=== PATIENT | female | born 1945 | race Caucasian/White ===

== ENCOUNTER → 2016-03-03 | Outpatient (CLI) | payer MEDICARE, OTHER ==
[~2016-03-03] VITALS: Ht 30.5 cm; Wt 0.5 kg
[~2016-03-03] MED LIST: ALPR0.254 PO; AMIO200T33; CYANOCOBALAMIN (B-12) 1000 MCG/1 ML VIAL IM ONE; CYANOCOBALAMIN (B-12) 1000 MCG/1 ML VIAL ONE; KETOROLAC TROMETH 60MG/2ML VIAL IM ONE; LEVO75TA6; LOSA100T27; METO-159; SIMV-8; WARF2TAB49
[2016-03-03 10:25] VITALS: BP 124/73
[2016-03-03 10:36] VITALS: BP 112/76
[2016-03-03 10:52] VITALS: BP 112/76
[2016-03-03 16:36] LABS: Basophils # (auto) 0.1 uL; Basophils % (auto) 0.9 % (0.0-2.0); Eosinophils # (auto) 0 uL; Eosinophils % (auto) 0.3 % (0.0-7.0); Hematocrit 39.7 % (36.0-46.0); Hemoglobin 12.9 g/dL (12.2-16.2); Lymphocytes % (auto) 14.4 % (10.0-50.0); Mean Corpuscular Hemoglobin 30.3 pg (28.0-32.0); Mean Corpuscular Hgb Conc. 32.4 g/dL (32.0-36.0); Mean Corpuscular Volume 93.6 fL (80.0-100.0); Mean Platelet Volume 8.5 fL (7.4-10.4); Monocytes # (auto) 0.2 uL; Monocytes % (auto) 1.6 % (0.0-12.0); Neutrophils # (auto) 11.4 uL; Neutrophils % (auto) 82.8 % (37.0-80.0); Platelet Count (auto) 186 10^3/uL (140-450); Red Cell Distribution Width 17.1 % (11.6-16.0); White Blood Cell 13.7 10^3/uL (4.4-10.8)
== END | disposition home or self-care (01) ==
LOC: CHF HDHVI 10:16
PROVIDERS: ATTEND Internal Medicine Cardiovascular Disease
DX: D64.9 Anemia, unspecified (principal)
CPT/HCPCS: 36415; 85025; 96372; G0463; J1885

== ENCOUNTER → 2016-03-10 | Outpatient (CLI) | payer MEDICARE, OTHER ==
[~2016-03-10] MED LIST changes: -KETOROLAC TROMETH 60MG/2ML VIAL IM ONE
[2016-03-10 10:45] VITALS: BP 154/71
[2016-03-10 11:36] LABS: INR 1.7 (0.7-1.3); Prothrombin Time 20.8 sec (9.0-12.0)
[2016-03-10 11:40] VITALS: BP 120/79
[2016-03-10 16:28] LABS: Basophils # (auto) 0 uL; Basophils % (auto) 0.2 % (0.0-2.0); Eosinophils # (auto) 0 uL; Eosinophils % (auto) 0.1 % (0.0-7.0); Hematocrit 37.3 % (36.0-46.0); Lymphocytes # (auto) 1.5 uL; Lymphocytes % (auto) 20.3 % (10.0-50.0); Mean Corpuscular Hemoglobin 30.3 pg (28.0-32.0); Mean Corpuscular Hgb Conc. 32.1 g/dL (32.0-36.0); Mean Corpuscular Volume 94.4 fL (80.0-100.0); Mean Platelet Volume 8.6 fL (7.4-10.4); Monocytes # (auto) 0.2 uL; Monocytes % (auto) 2.8 % (0.0-12.0); Neutrophils # (auto) 5.8 uL; Neutrophils % (auto) 76.6 % (37.0-80.0); Platelet Count (auto) 144 10^3/uL (140-450); Red Cell Distribution Width 16.8 % (11.6-16.0); White Blood Cell 7.6 10^3/uL (4.4-10.8)
== END | disposition home or self-care (01) ==
LOC: CHF HDHVI 10:48
PROVIDERS: ATTEND Internal Medicine Cardiovascular Disease
DX: D64.9 Anemia, unspecified (principal)
CPT/HCPCS: 36415; 85025; 85610; 96372; G0463

== ENCOUNTER → 2016-03-18 | Outpatient (CLI) | payer MEDICARE, OTHER ==
[~2016-03-18] VITALS: Ht 30.5 cm; Wt 0.5 kg
[2016-03-18 11:00] VITALS: BP 149/67
[2016-03-18 11:23] VITALS: BP 141/62
[2016-03-18 13:01] LABS: Basophils # (auto) 0 uL; Basophils % (auto) 0.5 % (0.0-2.0); Eosinophils # (auto) 0 uL; Eosinophils % (auto) 0.2 % (0.0-7.0); Hematocrit 34.9 % (36.0-46.0); Hemoglobin 11.5 g/dL (12.2-16.2); Lymphocytes # (auto) 1.2 uL; Lymphocytes % (auto) 48.1 % (10.0-50.0); Mean Corpuscular Hemoglobin 30.4 pg (28.0-32.0); Mean Corpuscular Volume 92.1 fL (80.0-100.0); Mean Platelet Volume 7.6 fL (7.4-10.4); Monocytes # (auto) 0.2 uL; Monocytes % (auto) 7.6 % (0.0-12.0); Neutrophils # (auto) 1.1 uL; Neutrophils % (auto) 43.6 % (37.0-80.0); Platelet Count (auto) 215 10^3/uL (140-450); Red Cell Distribution Width 16.4 % (11.6-16.0); White Blood Cell 2.6 10^3/uL (4.4-10.8)
== END | disposition home or self-care (01) ==
LOC: CHF HDHVI 11:07
PROVIDERS: ATTEND Internal Medicine Cardiovascular Disease
DX: D72.829 Elevated white blood cell count, unspecified (principal)
CPT/HCPCS: 36415; 85025; 85049; 96372; G0463

== ENCOUNTER → 2016-03-24 | Outpatient (CLI) | payer MEDICARE, OTHER ==
[2016-03-24 12:05] VITALS: BP 146/83
[2016-03-24 12:35] VITALS: BP 140/66
[2016-03-24 16:17] LABS: Basophils # (auto) 0 uL; Basophils % (auto) 0.4 % (0.0-2.0); Eosinophils # (auto) 0 uL; Eosinophils % (auto) 0.2 % (0.0-7.0); Hematocrit 37.1 % (36.0-46.0); Hemoglobin 12.2 g/dL (12.2-16.2); Lymphocytes # (auto) 1.5 uL; Lymphocytes % (auto) 49.2 % (10.0-50.0); Mean Corpuscular Hemoglobin 30.6 pg (28.0-32.0); Mean Corpuscular Hgb Conc. 32.9 g/dL (32.0-36.0); Mean Platelet Volume 7.4 fL (7.4-10.4); Monocytes # (auto) 0.2 uL; Monocytes % (auto) 7.6 % (0.0-12.0); Neutrophils # (auto) 1.3 uL; Neutrophils % (auto) 42.6 % (37.0-80.0); Platelet Count (auto) 238 10^3/uL (140-450); Red Cell Distribution Width 17.3 % (11.6-16.0); White Blood Cell 3.1 10^3/uL (4.4-10.8)
[2016-03-24 16:36] LABS: Albumin 3.9 g/dL (3.4-5.0); BUN/Creatinine Ratio 8.8; Bilirubin, Total 0.5 mg/dL (0.2-1.0); Calcium 8.6 mg/dL (8.5-10.1); Potassium 3.9 mmol/L (3.5-5.1); Total Protein 7.1 g/dL (6.4-8.2)
== END | disposition home or self-care (01) ==
LOC: CHF HDHVI 12:08
PROVIDERS: ATTEND Internal Medicine Cardiovascular Disease
DX: I10 Essential (primary) hypertension (principal); D64.9 Anemia, unspecified; D72.9 Disorder of white blood cells, unspecified; I25.10 Atherosclerotic heart disease of native coronary artery without angina pectoris
CPT/HCPCS: 36415; 80053; 83615; 85025; 85049; 96372; G0463; J3420

== ENCOUNTER → 2016-04-12 | Outpatient (CLI) | payer MEDICARE, OTHER ==
[2016-04-12 11:45] VITALS: BP 129/67
[2016-04-12 12:16] LABS: INR 1.8 (0.7-1.3)
[2016-04-12 12:25] VITALS: BP 122/58
== END | disposition home or self-care (01) ==
LOC: CHF HDHVI 11:51
PROVIDERS: ATTEND Internal Medicine Cardiovascular Disease
DX: I11.0 Hypertensive heart disease with heart failure (principal); I50.9 Heart failure, unspecified; I25.10 Atherosclerotic heart disease of native coronary artery without angina pectoris; D64.9 Anemia, unspecified; R53.83 Other fatigue
CPT/HCPCS: 85610; 96372; G0463; J3420

== ENCOUNTER → 2016-04-22 | Outpatient (CLI) | payer MEDICARE, OTHER ==
[2016-04-22 12:25] VITALS: BP 128/62
[2016-04-22 12:50] VITALS: BP 126/57
== END | disposition home or self-care (01) ==
LOC: CHF HDHVI 13:10
PROVIDERS: ATTEND Internal Medicine Cardiovascular Disease
DX: I11.0 Hypertensive heart disease with heart failure (principal); I50.9 Heart failure, unspecified; I25.10 Atherosclerotic heart disease of native coronary artery without angina pectoris; D64.9 Anemia, unspecified
CPT/HCPCS: 96372; G0463; J3420

== ENCOUNTER → 2016-05-03 | Outpatient (CLI) | payer MEDICARE, OTHER ==
[~2016-05-03] MED LIST changes: +KETOROLAC TROMETH 60MG/2ML VIAL IM ONE
[2016-05-03 12:35] LABS: Basophils # (auto) 0 uL; Basophils % (auto) 0.6 % (0.0-2.0); Eosinophils # (auto) 0 uL; Eosinophils % (auto) 0.5 % (0.0-7.0); Hematocrit 36.8 % (36.0-46.0); Hemoglobin 12.6 g/dL (12.2-16.2); Lymphocytes # (auto) 1.7 uL; Mean Corpuscular Hemoglobin 31.7 pg (28.0-32.0); Mean Corpuscular Hgb Conc. 34.1 g/dL (32.0-36.0); Mean Corpuscular Volume 92.9 fL (80.0-100.0); Mean Platelet Volume 8.2 fL (7.4-10.4); Monocytes # (auto) 0.2 uL; Monocytes % (auto) 7.2 % (0.0-12.0); Neutrophils # (auto) 1.4 uL; Neutrophils % (auto) 41.7 % (37.0-80.0); Platelet Count (auto) 210 10^3/uL (140-450); White Blood Cell 3.5 10^3/uL (4.4-10.8)
[2016-05-03 13:08] LABS: Albumin 3.9 g/dL (3.4-5.0); BUN/Creatinine Ratio 20.8; Bilirubin, Total 0.7 mg/dL (0.2-1.0); Calcium 8.9 mg/dL (8.5-10.1); Total Protein 7.2 g/dL (6.4-8.2)
== END | disposition home or self-care (01) ==
LOC: CHF HDHVI 09:50
PROVIDERS: ATTEND Internal Medicine Cardiovascular Disease
DX: D64.9 Anemia, unspecified (principal)
CPT/HCPCS: 36415; 80053; 83615; 85025; 96372; G0463; J1885

== ENCOUNTER → 2016-05-05 | Outpatient (CLI) | payer MEDICARE, OTHER ==
[~2016-05-05] MED LIST changes: -CYANOCOBALAMIN (B-12) 1000 MCG/1 ML VIAL IM ONE; -CYANOCOBALAMIN (B-12) 1000 MCG/1 ML VIAL ONE
[2016-05-05 14:15] VITALS: BP 128/68
[2016-05-05 15:03] VITALS: BP 108/67
== END | disposition home or self-care (01) ==
LOC: CHF HDHVI 14:16
PROVIDERS: ATTEND Internal Medicine Cardiovascular Disease
DX: I11.0 Hypertensive heart disease with heart failure (principal); I50.9 Heart failure, unspecified; I25.10 Atherosclerotic heart disease of native coronary artery without angina pectoris; M54.5 Low back pain; R10.2 Pelvic and perineal pain; M12.88 Other specific arthropathies, not elsewhere classified, other specified site; M51.37 Other intervertebral disc degeneration, lumbosacral region; I70.0 Atherosclerosis of aorta
CPT/HCPCS: 72110; 72170; 96372; G0463; J1885

== ENCOUNTER → 2016-06-09 | Outpatient (CLI) | payer MEDICARE, OTHER ==
[~2016-06-09] MED LIST changes: +CYANOCOBALAMIN (B-12) 1000 MCG/1 ML VIAL IM ONE; +CYANOCOBALAMIN (B-12) 1000 MCG/1 ML VIAL ONE; -KETOROLAC TROMETH 60MG/2ML VIAL IM ONE
[2016-06-09 09:30] VITALS: BP 155/75
[2016-06-09 10:00] VITALS: BP 148/77
[2016-06-09 10:02] LABS: INR 2.2 (0.7-1.3); Prothrombin Time 26.5 sec (9.0-12.0)
[2016-06-09 16:26] LABS: BUN/Creatinine Ratio 12.3; Bilirubin, Total 0.4 mg/dL (0.2-1.0); Calcium 9.1 mg/dL (8.5-10.1); Potassium 4.1 mmol/L (3.5-5.1); Total Protein 7.7 g/dL (6.4-8.2)
[2016-06-09 16:42] LABS: Hematocrit 39.7 % (36.0-46.0); Hemoglobin 13.4 g/dL (12.2-16.2); Mean Corpuscular Hemoglobin 31.3 pg (28.0-32.0); Mean Corpuscular Hgb Conc. 33.9 g/dL (32.0-36.0); Mean Corpuscular Volume 92.4 fL (80.0-100.0); Mean Platelet Volume 7.5 fL (7.4-10.4); Platelet Count (auto) 244 10^3/uL (140-450); White Blood Cell 5.5 10^3/uL (4.4-10.8)
[2016-06-09 16:55] LABS: Metamyelocytes % 0; Myelocytes % 0; Promyelocytes % 0
[2016-06-09 18:42] LABS: Platelet Estimate Adequate; RBC Morphology Normal
[2016-06-09 18:44] LABS: Reactive Lymphocytes 2
== END | disposition home or self-care (01) ==
LOC: CHF HDHVI 09:40
PROVIDERS: ATTEND Internal Medicine Cardiovascular Disease
DX: D64.9 Anemia, unspecified (principal)
CPT/HCPCS: 36415; 80053; 83615; 85007; 85027; 85610; 96372; G0463

== ENCOUNTER → 2016-07-19 | Outpatient (CLI) | payer MEDICARE, OTHER ==
[~2016-07-19] VITALS: Ht 30.5 cm; Wt 0.5 kg
[2016-07-19 11:50] VITALS: BP 157/74
[2016-07-19 12:20] VITALS: BP 139/83
== END | disposition home or self-care (01) ==
LOC: CHF HDHVI 11:49
PROVIDERS: ATTEND Internal Medicine Cardiovascular Disease
DX: I11.0 Hypertensive heart disease with heart failure (principal); I50.9 Heart failure, unspecified; I48.91 Unspecified atrial fibrillation; R53.83 Other fatigue
CPT/HCPCS: 96372; G0463; J3420

== ENCOUNTER → 2016-07-28 | Outpatient (CLI) | payer MEDICARE, OTHER ==
[~2016-07-28] VITALS: Ht 30.5 cm; Wt 0.5 kg
[2016-07-28 13:55] VITALS: BP 152/83
[2016-07-28 14:37] LABS: INR 2.9 (0.7-1.3); Prothrombin Time 34.9 sec (9.0-12.0)
[2016-07-28 14:45] VITALS: BP 144/75
[2016-07-28 17:13] LABS: Basophils # (auto) 0 uL; Basophils % (auto) 0.5 % (0.0-2.0); Eosinophils # (auto) 0 uL; Eosinophils % (auto) 0.1 % (0.0-7.0); Hemoglobin 12.9 g/dL (12.2-16.2); Lymphocytes # (auto) 2.3 uL; Lymphocytes % (auto) 50.8 % (10.0-50.0); Mean Corpuscular Hemoglobin 31.8 pg (28.0-32.0); Mean Corpuscular Hgb Conc. 34.8 g/dL (32.0-36.0); Mean Corpuscular Volume 91.5 fL (80.0-100.0); Mean Platelet Volume 7.8 fL (7.4-10.4); Monocytes # (auto) 0.4 uL; Monocytes % (auto) 8.9 % (0.0-12.0); Neutrophils # (auto) 1.8 uL; Neutrophils % (auto) 39.7 % (37.0-80.0); Platelet Count (auto) 290 10^3/uL (140-450); Red Cell Distribution Width 15.6 % (11.6-16.0); SUSPECT VIEW TRANSMISSION; White Blood Cell 4.5 10^3/uL (4.4-10.8)
[2016-07-28 17:31] LABS: Calcium 8.6 mg/dL (8.5-10.1); Magnesium 2.3 mg/dL (1.6-2.6)
== END | disposition home or self-care (01) ==
LOC: CHF HDHVI 14:00
PROVIDERS: ATTEND Internal Medicine Cardiovascular Disease
DX: I10 Essential (primary) hypertension (principal); E83.42 Hypomagnesemia; D64.9 Anemia, unspecified
CPT/HCPCS: 36415; 80048; 83735; 85025; 85610; G0463

== ENCOUNTER → 2016-07-29 | Outpatient (CLI) | payer MEDICARE, OTHER ==
[~2016-07-29] MED LIST changes: -CYANOCOBALAMIN (B-12) 1000 MCG/1 ML VIAL IM ONE; -CYANOCOBALAMIN (B-12) 1000 MCG/1 ML VIAL ONE; +MULTIPLE VIT 10 ML IV ONE; +MVI in SODIUM CHLORIDE 0.9% 1,010 ML ONE; +SODIUM CHLORIDE 0.9% 500 ML IV SCH
[2016-07-29 16:02] VITALS: BP 144/65
[2016-07-29 16:34] VITALS: BP 138/58
== END | disposition home or self-care (01) ==
LOC: CHF HDHVI 13:54
PROVIDERS: ATTEND Internal Medicine Cardiovascular Disease
DX: I50.9 Heart failure, unspecified (principal); E86.0 Dehydration; E87.1 Hypo-osmolality and hyponatremia; R53.83 Other fatigue
CPT/HCPCS: 96365; 96366; G0463; J3411; J3475; 96360; 96361

== ENCOUNTER → 2016-08-12 | Outpatient (CLI) | payer MEDICARE, OTHER ==
[~2016-08-12] MED LIST changes: +CYANOCOBALAMIN (B-12) 1000 MCG/1 ML VIAL IM ONE; +CYANOCOBALAMIN (B-12) 1000 MCG/1 ML VIAL ONE; -MULTIPLE VIT 10 ML IV ONE; -MVI in SODIUM CHLORIDE 0.9% 1,010 ML ONE; -SODIUM CHLORIDE 0.9% 500 ML IV SCH
[2016-08-12 13:45] VITALS: BP 116/67
[2016-08-12 16:30] VITALS: BP 136/94
== END | disposition home or self-care (01) ==
LOC: CHF HDHVI 15:49
PROVIDERS: ATTEND Internal Medicine Cardiovascular Disease
DX: I50.9 Heart failure, unspecified (principal); D64.9 Anemia, unspecified; R53.83 Other fatigue; R53.1 Weakness
CPT/HCPCS: 96372; G0463; J3420

== ENCOUNTER → 2016-08-13 | Outpatient (CLI) | payer MEDICARE, OTHER ==
[~2016-08-13] MED LIST changes: -CYANOCOBALAMIN (B-12) 1000 MCG/1 ML VIAL IM ONE; -CYANOCOBALAMIN (B-12) 1000 MCG/1 ML VIAL ONE
== END | disposition home or self-care (01) ==
LOC: Rad HDHVI 11:54
PROVIDERS: ATTEND Internal Medicine Cardiovascular Disease
DX: I51.7 Cardiomegaly (principal); I27.2 Other secondary pulmonary hypertension; J90 Pleural effusion, not elsewhere classified
CPT/HCPCS: 71020

== ENCOUNTER → 2016-08-17 | Outpatient (CLI) | payer MEDICARE, OTHER ==
[~2016-08-17] MED LIST changes: +MULTIPLE VIT 10 ML IV ONE; +MVI in SODIUM CHLORIDE 0.9% 1,010 ML ONE; +SODIUM CHLORIDE 0.9% 500 ML IVB ONE; +diphenhdrAMINE HCL 50 MG/1 ML VL IV ONE; +diphenhdrAMINE HCL 50 MG/1 ML VL ONE
[2016-08-17 15:30] VITALS: BP 131/58
[2016-08-17 16:40] VITALS: BP 128/62
[2016-08-17 17:27] LABS: BUN/Creatinine Ratio 12.8; Calcium 8.7 mg/dL (8.5-10.1); Magnesium 2.7 mg/dL (1.6-2.6)
[2016-08-17 17:35] LABS: Basophils # (auto) 0 uL; Basophils % (auto) 0.3 % (0.0-2.0); CONDITION Y; Eosinophils # (auto) 0 uL; Eosinophils % (auto) 0.3 % (0.0-7.0); Hemoglobin 13.6 g/dL (12.2-16.2); Lymphocytes # (auto) 2.1 uL; Lymphocytes % (auto) 45.5 % (10.0-50.0); Mean Corpuscular Hemoglobin 31.5 pg (28.0-32.0); Mean Corpuscular Hgb Conc. 34.1 g/dL (32.0-36.0); Mean Corpuscular Volume 92.6 fL (80.0-100.0); Mean Platelet Volume 8.1 fL (7.4-10.4); Monocytes # (auto) 0.4 uL; Monocytes % (auto) 9.3 % (0.0-12.0); Neutrophils # (auto) 2.1 uL; Neutrophils % (auto) 44.6 % (37.0-80.0); Platelet Count (auto) 345 10^3/uL (140-450); Red Cell Distribution Width 15.9 % (11.6-16.0); White Blood Cell 4.6 10^3/uL (4.4-10.8)
== END | disposition home or self-care (01) ==
LOC: CHF HDHVI 14:26
PROVIDERS: ATTEND Internal Medicine Cardiovascular Disease
DX: E86.0 Dehydration (principal); F41.9 Anxiety disorder, unspecified; L29.9 Pruritus, unspecified
CPT/HCPCS: 36415; 80048; 83735; 85025; 96365; 96366; 96375; G0463; J1200; J3411; J3475

== ENCOUNTER → 2016-08-19 | Outpatient (CLI) | payer MEDICARE, OTHER ==
[~2016-08-19] MED LIST changes: -diphenhdrAMINE HCL 50 MG/1 ML VL IV ONE; -diphenhdrAMINE HCL 50 MG/1 ML VL ONE
[2016-08-19 14:04] VITALS: BP 132/57
[2016-08-19 16:22] LABS: INR 1.5 (0.7-1.3); Prothrombin Time 17.4 sec (9.0-12.0)
== END | disposition home or self-care (01) ==
LOC: CHF HDHVI 11:24
PROVIDERS: ATTEND Internal Medicine Cardiovascular Disease
DX: I11.0 Hypertensive heart disease with heart failure (principal); I50.9 Heart failure, unspecified; E78.5 Hyperlipidemia, unspecified
CPT/HCPCS: 85610; 96365; 96366; G0463; J3411; J3475

== ENCOUNTER → 2016-08-25 | Outpatient (CLI) | payer MEDICARE, OTHER ==
[~2016-08-25] MED LIST changes: +DASA20TA PO; -LEVO75TA6; +LEVO75TA6 PO; -METO-159; +METO-159 PO; +ONDANSETRON HCL 4 MG/2 ML VIAL IV ONE; +ONDANSETRON HCL 4 MG/2 ML VIAL ONE; -SODIUM CHLORIDE 0.9% 500 ML IVB ONE; -WARF2TAB49; +WARF2TAB49 PO
[2016-08-25 16:22] LABS: INR 1.8 (0.7-1.3); Prothrombin Time 21.3 sec (9.0-12.0)
[2016-08-25 16:35] VITALS: BP 143/64
[2016-08-25 17:05] LABS: Calcium 8.3 mg/dL (8.5-10.1); Potassium 3.9 mmol/L (3.5-5.1)
== END | disposition home or self-care (01) ==
LOC: CHF HDHVI 14:00
PROVIDERS: ATTEND Internal Medicine Cardiovascular Disease
DX: I10 Essential (primary) hypertension (principal); E86.0 Dehydration; E87.1 Hypo-osmolality and hyponatremia; R53.83 Other fatigue
CPT/HCPCS: 36415; 80048; 85610; 96365; 96366; 96375; G0463; J2405; J3411; J3475

== ENCOUNTER → 2016-09-01 | Outpatient (CLI) | payer MEDICARE, OTHER ==
[~2016-09-01] MED LIST changes: -MULTIPLE VIT 10 ML IV ONE; -MVI in SODIUM CHLORIDE 0.9% 1,010 ML ONE; -ONDANSETRON HCL 4 MG/2 ML VIAL IV ONE; -ONDANSETRON HCL 4 MG/2 ML VIAL ONE; +READI-CAT 2 (BARIUM SULF)(VANILLA SMOOTHIE) 450ML ONE
[2016-09-01 14:10] VITALS: BP 131/67
[2016-09-01 16:12] LABS: Urine Bilirubin Negative (Negative); Urine Blood TRACE /uL (Negative); Urine Color Yellow (Yellow); Urine Glucose Normal (Normal); Urine Ketone 2+ (Negative); Urine Nitrite Negative (Negative); Urine pH 6.5 (5.0-8.0)
[2016-09-01 16:45] VITALS: BP 131/55
== END | disposition home or self-care (01) ==
LOC: Rad HDHVI 14:03
PROVIDERS: ATTEND Internal Medicine Cardiovascular Disease
DX: I50.9 Heart failure, unspecified (principal); J44.9 Chronic obstructive pulmonary disease, unspecified; C92.10 Chronic myeloid leukemia, BCR/ABL-positive, not having achieved remission; K57.30 Diverticulosis of large intestine without perforation or abscess without bleeding; J90 Pleural effusion, not elsewhere classified; J98.11 Atelectasis; N39.0 Urinary tract infection, site not specified; E04.2 Nontoxic multinodular goiter; K76.89 Other specified diseases of liver; R06.02 Shortness of breath; Z90.710 Acquired absence of both cervix and uterus
CPT/HCPCS: 71275; 74178; 81003; 82565; 87086; 96374; G0463; Q9967

== ENCOUNTER → 2016-09-02 | Outpatient (CLI) | payer MEDICARE, OTHER ==
[~2016-09-02] MED LIST changes: -DASA20TA PO; +IOHEXOL 350 MG/ML 100ML IJ ONE; +LEVO75TA6; -LEVO75TA6 PO; +METO-159; -METO-159 PO; -READI-CAT 2 (BARIUM SULF)(VANILLA SMOOTHIE) 450ML ONE; +WARF2TAB49; -WARF2TAB49 PO
== END | disposition home or self-care (01) ==
LOC: Rad HDHVI 14:03
PROVIDERS: ATTEND Internal Medicine Cardiovascular Disease
DX: I48.0 Paroxysmal atrial fibrillation (principal); R00.1 Bradycardia, unspecified
CPT/HCPCS: 93306; G0463

== ENCOUNTER → 2016-09-07 | Outpatient (CLI) | payer MEDICARE, OTHER ==
[~2016-09-07] VITALS: Ht 30.5 cm; Wt 0.5 kg
[~2016-09-07] MED LIST changes: +CYANOCOBALAMIN (B-12) 1000 MCG/1 ML VIAL IM ONE; +CYANOCOBALAMIN (B-12) 1000 MCG/1 ML VIAL ONE; -IOHEXOL 350 MG/ML 100ML IJ ONE
[2016-09-07 16:00] VITALS: BP 149/67
[2016-09-07 16:30] VITALS: BP 128/67
== END | disposition home or self-care (01) ==
LOC: CHF HDHVI 16:08
PROVIDERS: ATTEND Internal Medicine Cardiovascular Disease
DX: C92.10 Chronic myeloid leukemia, BCR/ABL-positive, not having achieved remission (principal); D64.9 Anemia, unspecified
CPT/HCPCS: 96372; G0463; J3420

== ENCOUNTER → 2016-09-10 | Outpatient (CLI) | payer MEDICARE, OTHER ==
[~2016-09-10] MED LIST changes: -CYANOCOBALAMIN (B-12) 1000 MCG/1 ML VIAL IM ONE; -CYANOCOBALAMIN (B-12) 1000 MCG/1 ML VIAL ONE; +DASA20TA PO; +FOLIC ACID 1 mg/0.2ml INJECTION INJ ONE; -LEVO75TA6; +LEVO75TA6 PO; -METO-159; +METO-159 PO; +MULTIPLE VIT 10 ML IV ONE; +MVI in SODIUM CHLORIDE 0.9% 1,010 ML ONE; +SODIUM CHLORIDE 0.9% 1,000 ML IVB ONE; +SODIUM CHLORIDE 0.9% 250 ML IV ONE; +THIAMINE HCL 100 MG/ML 2ML VIAL IV ONE; +THIAMINE HCL 100 MG/ML 2ML VIAL ONE; -WARF2TAB49; +WARF2TAB49 PO
[2016-09-10 09:45] VITALS: BP 113/51
[2016-09-10 13:42] LABS: INR 2.1 (0.7-1.3); Prothrombin Time 25.4 sec (9.0-12.0)
[2016-09-10 14:40] VITALS: BP 102/49
== END | disposition home or self-care (01) ==
LOC: CHF HDHVI 09:42
PROVIDERS: ATTEND Internal Medicine Cardiovascular Disease
DX: I50.9 Heart failure, unspecified (principal); I95.9 Hypotension, unspecified; E86.0 Dehydration
CPT/HCPCS: 85610; 96365; 96366; G0463; J3411; J3475

== ENCOUNTER → 2016-09-13 | Outpatient (CLI) | payer MEDICARE, OTHER ==
[~2016-09-13] MED LIST changes: +CYANOCOBALAMIN (B-12) 1000 MCG/1 ML VIAL IM ONE; +CYANOCOBALAMIN (B-12) 1000 MCG/1 ML VIAL ONE; -FOLIC ACID 1 mg/0.2ml INJECTION INJ ONE; -SODIUM CHLORIDE 0.9% 250 ML IV ONE; -THIAMINE HCL 100 MG/ML 2ML VIAL IV ONE; -THIAMINE HCL 100 MG/ML 2ML VIAL ONE
[2016-09-13 12:40] VITALS: BP 119/52
[2016-09-13 16:21] LABS: Basophils # (auto) 0 uL; Basophils % (auto) 0.3 % (0.0-2.0); CONDITION Y; Eosinophils # (auto) 0 uL; Eosinophils % (auto) 0.2 % (0.0-7.0); Hematocrit 34.3 % (36.0-46.0); Hemoglobin 12.1 g/dL (12.2-16.2); Lymphocytes # (auto) 1.6 uL; Lymphocytes % (auto) 44.7 % (10.0-50.0); Mean Corpuscular Hemoglobin 31.3 pg (28.0-32.0); Mean Corpuscular Hgb Conc. 35.3 g/dL (32.0-36.0); Mean Corpuscular Volume 88.5 fL (80.0-100.0); Mean Platelet Volume 7.8 fL (7.4-10.4); Monocytes # (auto) 0.4 uL; Monocytes % (auto) 10.8 % (0.0-12.0); Neutrophils # (auto) 1.6 uL; Platelet Count (auto) 308 10^3/uL (140-450); Red Cell Distribution Width 15.2 % (11.6-16.0); White Blood Cell 3.6 10^3/uL (4.4-10.8)
[2016-09-13 16:43] LABS: Albumin 3.5 g/dL (3.4-5.0); BUN/Creatinine Ratio 23.3; Bilirubin, Total 0.4 mg/dL (0.2-1.0); Calcium 8.4 mg/dL (8.5-10.1); Potassium 3.9 mmol/L (3.5-5.1); Total Protein 6.8 g/dL (6.4-8.2)
[2016-09-13 17:15] VITALS: BP 105/60
== END | disposition home or self-care (01) ==
LOC: CHF HDHVI 12:20
PROVIDERS: ATTEND Internal Medicine Cardiovascular Disease
DX: D72.829 Elevated white blood cell count, unspecified (principal); C92.10 Chronic myeloid leukemia, BCR/ABL-positive, not having achieved remission
CPT/HCPCS: 36415; 80053; 83615; 85025; 96365; 96366; 96372; G0463

== ENCOUNTER 2016-09-15 13:00 | Inpatient (IN) | payer MEDICARE, OTHER ==
[~2016-09-15] VITALS: Ht 162.6 cm; Wt 90.2 kg
[~2016-09-15 13:00] MED LIST changes: -CYANOCOBALAMIN (B-12) 1000 MCG/1 ML VIAL IM ONE; -CYANOCOBALAMIN (B-12) 1000 MCG/1 ML VIAL ONE; -DASA20TA PO; -MULTIPLE VIT 10 ML IV ONE; -MVI in SODIUM CHLORIDE 0.9% 1,010 ML ONE; -SODIUM CHLORIDE 0.9% 1,000 ML IVB ONE
[2016-09-15] MEDS ORDERED: NITROGLYCERIN 0.4 MG SL TAB SL PRN (13:30)
[2016-09-15] MEDS ORDERED: SODIUM CHL 3% 500 ML IV ONE (13:30)
[2016-09-15] MEDS ORDERED: MORPHINE SULF INJ 2 MG/ML SYRINGE 1ML IV PRN (13:30)
[2016-09-15] MEDS ORDERED: DASA20TA PO (13:48)
[2016-09-15] MEDS ORDERED: cefTRIAXone 1GM/50ML D5W 50 ML IV ONE (14:00)
[2016-09-15 14:07] VITALS: BP 127/70
[2016-09-15] MEDS ORDERED: LEVOTHYROXINE SODIUM 100 MCG TAB PO ONE (14:15)
[2016-09-15] MEDS ORDERED: METOPROLOL SUCCINATE XL 50 MG TAB PO ONE (14:15)
[2016-09-15 14:44] LABS: INR 1.4 (0.9-1.15); Partial Thromboplastin Time 32.2 sec (22.64-33.71)
[2016-09-15 14:55] LABS: Prothrombin Time 15.3 sec (9.37-12.3)
[2016-09-15 14:56] LABS: Albumin 3.3 g/dL (3.4-5.0); BUN/Creatinine Ratio 23.3; Bilirubin, Total 0.4 mg/dL (0.2-1.0); Calcium 8.5 mg/dL (8.5-10.1); Potassium 4.4 mmol/L (3.5-5.1); Total Protein 6.5 g/dL (6.4-8.2)
[2016-09-15 17:00] VITALS: BP 124/72
[2016-09-15] MEDS ORDERED: ONDANSETRON HCL 4 MG/2 ML VIAL IV PRN (17:00)
[2016-09-15 19:13] LABS: Urine Bilirubin Negative (Negative); Urine Blood Negative /uL (Negative); Urine Color Yellow (Yellow); Urine Glucose Normal (Normal); Urine Ketone TRACE (Negative); Urine Nitrite Negative (Negative); Urine RBC 1 /hpf (0 - 4); Urine Urobilinogen Normal (Negative)
[2016-09-15 20:00] VITALS: BP 115/62
[2016-09-15] MEDS: DASATINIB 70 MG PO SCH (20:33)
[2016-09-15 21:54] VITALS: BP 115/62
[2016-09-15] MEDS ORDERED: PATIENTS OWN MEDICATION PO SCH ×2 (22:00)
[2016-09-15] MEDS: ALPRAZolam 0.5 MG TAB PO SCH (23:05)
[2016-09-15] MEDS: WARFARIN SODIUM 2 MG TAB PO SCH (23:06)
[2016-09-16 05:00] VITALS: BP 100/49
[2016-09-16 05:57] LABS: Basophils # (auto) 0 uL; Basophils % (auto) 0.5 % (0.0-2.0); CONDITION Y; Eosinophils # (auto) 0 uL; Hematocrit 35.2 % (36.0-46.0); Hemoglobin 11.9 g/dL (12.2-16.2); Lymphocytes # (auto) 1.6 uL; Lymphocytes % (auto) 44.5 % (10.0-50.0); Mean Corpuscular Hgb Conc. 33.9 g/dL (32.0-36.0); Mean Corpuscular Volume 91.4 fL (80.0-100.0); Mean Platelet Volume 7.7 fL (7.4-10.4); Monocytes # (auto) 0.4 uL; Neutrophils # (auto) 1.6 uL; Platelet Count (auto) 308 10^3/uL (140-450); Red Cell Distribution Width 15.6 % (11.6-16.0); White Blood Cell 3.7 10^3/uL (4.4-10.8)
[2016-09-16 06:07] LABS: INR 1.32 (0.9-1.15); Partial Thromboplastin Time 30.6 sec (22.64-33.71)
[2016-09-16 06:17] LABS: Prothrombin Time 14.4 sec (9.37-12.3)
[2016-09-16 06:36] LABS: Calcium 8.4 mg/dL (8.5-10.1); Potassium 3.8 mmol/L (3.5-5.1)
[2016-09-16 06:40] LABS: BUN/Creatinine Ratio 17.6
[2016-09-16] MEDS: LEVOTHYROXINE SODIUM 100 MCG TAB PO SCH (06:53)
[2016-09-16 09:00] VITALS: BP 106/56
[2016-09-16] MEDS ORDERED: cefTRIAXone 1GM/50ML D5W 50 ML IV SCH (09:00)
[2016-09-16] MEDS: ALPRAZolam 0.5 MG TAB PO SCH ×2 (09:42→21:28)
[2016-09-16] MEDS: METOPROLOL SUCCINATE XL 50 MG TAB PO SCH (09:44)
[2016-09-16] MEDS: MAGNESIUM OXIDE 400 MG TAB PO SCH ×2 (11:00→21:28)
[2016-09-16 13:00] VITALS: BP 109/51
[2016-09-16 16:50] VITALS: BP 133/59
[2016-09-16 20:00] VITALS: BP 119/59
[2016-09-16] MEDS: DASATINIB 70 MG PO SCH (20:19)
[2016-09-16] MEDS: WARFARIN SODIUM 2 MG TAB PO SCH (21:30)
[2016-09-16 22:00] VITALS: BP 119/59
[2016-09-17 05:00] VITALS: BP 125/66
[2016-09-17] MEDS: LEVOTHYROXINE SODIUM 100 MCG TAB PO SCH (06:33)
[2016-09-17 07:09] LABS: INR 1.58 (0.9-1.15); Partial Thromboplastin Time 32.3 sec (22.64-33.71)
[2016-09-17 07:22] LABS: Prothrombin Time 17.3 sec (9.37-12.3)
[2016-09-17 08:08] VITALS: BP 122/60
[2016-09-17 08:32] LABS: Albumin 3.3 g/dL (3.4-5.0); Bilirubin, Total 0.3 mg/dL (0.2-1.0); Calcium 8.7 mg/dL (8.5-10.1); Potassium 4.1 mmol/L (3.5-5.1); Total Protein 6.6 g/dL (6.4-8.2)
[2016-09-17 09:09] VITALS: BP 122/60
[2016-09-17] MEDS: METOPROLOL SUCCINATE XL 50 MG TAB PO SCH (10:00)
[2016-09-17] MEDS: ALPRAZolam 0.5 MG TAB PO SCH ×2 (10:40→22:43)
[2016-09-17] MEDS: MAGNESIUM OXIDE 400 MG TAB PO SCH ×2 (10:40→22:43)
[2016-09-17 13:09] VITALS: BP 132/63
[2016-09-17] MEDS ORDERED: MAGNESIUM CITRATE SOLUTION 300 ML BTL PO ONE (15:15)
[2016-09-17] MEDS: DEMECLOCYCLINE HCL 150 MG TAB PO SCH ×2 (16:11→22:43)
[2016-09-17 17:00] VITALS: BP 132/68
[2016-09-17] MEDS: DASATINIB 70 MG PO SCH (19:48)
[2016-09-17 21:59] VITALS: BP 130/59
[2016-09-17] MEDS: WARFARIN SODIUM 2 MG TAB PO SCH (22:43)
[2016-09-18 05:00] VITALS: BP 120/63
[2016-09-18 05:55] LABS: INR 1.47 (0.9-1.15); Partial Thromboplastin Time 31.1 sec (22.64-33.71)
[2016-09-18 06:10] LABS: Prothrombin Time 16.1 sec (9.37-12.3)
[2016-09-18] MEDS: LEVOTHYROXINE SODIUM 100 MCG TAB PO SCH (06:15)
[2016-09-18 07:53] LABS: Calcium 8.5 mg/dL (8.5-10.1)
[2016-09-18 07:59] LABS: BUN/Creatinine Ratio 15.9
[2016-09-18 08:00] VITALS: BP 129/78
[2016-09-18 08:01] LABS: Potassium 4.1 mmol/L (3.5-5.1)
[2016-09-18 09:00] VITALS: BP 129/78
[2016-09-18] MEDS: METOPROLOL SUCCINATE XL 50 MG TAB PO SCH (10:00)
[2016-09-18] MEDS: ALPRAZolam 0.5 MG TAB PO SCH ×2 (10:10→21:35)
[2016-09-18] MEDS: MAGNESIUM OXIDE 400 MG TAB PO SCH ×2 (10:10→21:35)
[2016-09-18] MEDS: DEMECLOCYCLINE HCL 150 MG TAB PO SCH ×2 (10:10→21:35)
[2016-09-18 13:00] VITALS: BP 121/63
[2016-09-18 17:00] VITALS: BP 138/61
[2016-09-18] MEDS: DASATINIB 70 MG PO SCH (20:04)
[2016-09-18] MEDS: WARFARIN SODIUM 2 MG TAB PO SCH (21:35)
[2016-09-18 21:46] VITALS: BP 127/69
[2016-09-19 04:44] VITALS: BP 129/55
[2016-09-19] MEDS: LEVOTHYROXINE SODIUM 100 MCG TAB PO SCH (06:10)
[2016-09-19 06:37] LABS: INR 1.52 (0.9-1.15)
[2016-09-19 06:41] LABS: Prothrombin Time 16.6 sec (9.37-12.3)
[2016-09-19 09:00] VITALS: BP 127/59
[2016-09-19] MEDS: METOPROLOL SUCCINATE XL 50 MG TAB PO SCH (10:00)
[2016-09-19] MEDS: ALPRAZolam 0.5 MG TAB PO SCH (10:14)
[2016-09-19] MEDS: MAGNESIUM OXIDE 400 MG TAB PO SCH (10:14)
[2016-09-19] MEDS: DEMECLOCYCLINE HCL 150 MG TAB PO SCH (10:14)
[2016-09-19 13:00] VITALS: BP 128/79
== END 2016-09-19 13:00 | disposition home or self-care (01) | DRG 644 ==
LOC: TELE-E-ADS 13:00 → TELE-WESTW 16:20
PROVIDERS: ADMIT Internal Medicine Cardiovascular Disease; ATTEND Internal Medicine Cardiovascular Disease
DX: E22.2 Syndrome of inappropriate secretion of antidiuretic hormone (principal); C91.10 Chronic lymphocytic leukemia of B-cell type not having achieved remission; J90 Pleural effusion, not elsewhere classified; J98.11 Atelectasis; I10 Essential (primary) hypertension; K57.30 Diverticulosis of large intestine without perforation or abscess without bleeding; Z82.49 Family history of ischemic heart disease and other diseases of the circulatory system; Z82.5 Family history of asthma and other chronic lower respiratory diseases; Z83.3 Family history of diabetes mellitus; Z90.710 Acquired absence of both cervix and uterus; Z80.9 Family history of malignant neoplasm, unspecified; Z79.01 Long term (current) use of anticoagulants
CPT/HCPCS: 36415; 70470; 80048; 80053; 81001; 83615; 83935; 85025; 85610; 85730; 87086; 96365; 96366; 96372; G0463; J0696

== ENCOUNTER → 2016-09-20 | Outpatient (CLI) | payer MEDICARE, OTHER ==
[~2016-09-20] MED LIST changes: +CYANOCOBALAMIN (B-12) 1000 MCG/1 ML VIAL IM ONE; +CYANOCOBALAMIN (B-12) 1000 MCG/1 ML VIAL ONE; +DASA20TA PO; +MULTIPLE VIT 10 ML IV ONE; +MVI in SODIUM CHLORIDE 0.9% 1,010 ML ONE; +SODIUM CHLORIDE 0.9% 500 ML IVB ONE
[2016-09-20 12:12] LABS: INR 1.6 (0.7-1.3); Prothrombin Time 18.6 sec (9.0-12.0)
[2016-09-21 12:06] VITALS: BP 133/51
== END | disposition home or self-care (01) ==
LOC: CHF HDHVI 11:53
PROVIDERS: ATTEND Internal Medicine Cardiovascular Disease
DX: E86.0 Dehydration (principal); D64.9 Anemia, unspecified; R53.83 Other fatigue; R53.1 Weakness
CPT/HCPCS: 82962; 85610; 96365; 96366; 96372; G0463; J3411; J3420; J3475

== ENCOUNTER → 2016-09-21 | Outpatient (CLI) | payer MEDICARE, OTHER ==
[~2016-09-21] MED LIST changes: -AMIO200T33; -CYANOCOBALAMIN (B-12) 1000 MCG/1 ML VIAL IM ONE; -CYANOCOBALAMIN (B-12) 1000 MCG/1 ML VIAL ONE; -LOSA100T27; -MVI in SODIUM CHLORIDE 0.9% 1,010 ML ONE; -SIMV-8; +SODIUM CHLORIDE 0.9% 250 ML IV SCH; +SODIUM CHLORIDE 0.9% 250 ML IVB ONE; -SODIUM CHLORIDE 0.9% 500 ML IVB ONE
[2016-09-21 13:30] VITALS: BP 148/62
[2016-09-21 15:45] VITALS: BP 148/66
[2016-09-21 16:40] LABS: Urine Bilirubin Negative (Negative); Urine Blood Negative /uL (Negative); Urine Color Yellow (Yellow); Urine Glucose Normal (Normal); Urine Ketone Negative (Negative); Urine Nitrite Negative (Negative); Urine RBC <1 /hpf (0 - 4); Urine Squamous Epithelial Cell FEW /hpf (<5); Urine Urobilinogen Normal (Negative)
== END | disposition home or self-care (01) ==
LOC: CHF HDHVI 13:56
PROVIDERS: ATTEND Internal Medicine Cardiovascular Disease
DX: N39.0 Urinary tract infection, site not specified (principal)
CPT/HCPCS: 81001; 87086; 96360; G0463

== ENCOUNTER → 2016-09-22 | Outpatient (CLI) | payer MEDICARE, OTHER ==
[~2016-09-22] MED LIST changes: -MULTIPLE VIT 10 ML IV ONE; -SODIUM CHLORIDE 0.9% 250 ML IV SCH; -SODIUM CHLORIDE 0.9% 250 ML IVB ONE
[2016-09-22 12:05] VITALS: BP 143/63
[2016-09-22 14:00] VITALS: BP 135/56
== END | disposition home or self-care (01) ==
LOC: CHF HDHVI 12:03
PROVIDERS: ATTEND Internal Medicine Cardiovascular Disease
DX: C92.10 Chronic myeloid leukemia, BCR/ABL-positive, not having achieved remission (principal); D64.9 Anemia, unspecified; R53.1 Weakness
CPT/HCPCS: G0463

== ENCOUNTER → 2016-09-27 | Outpatient (CLI) | payer MEDICARE, OTHER ==
[2016-09-27 14:15] VITALS: BP 138/70
[2016-09-27 14:40] VITALS: BP 138/70
[2016-09-27 16:42] LABS: INR 1.6 (0.7-1.3); Prothrombin Time 19.7 sec (9.0-12.0)
== END | disposition home or self-care (01) ==
LOC: CHF HDHVI 15:51
PROVIDERS: ATTEND Internal Medicine Cardiovascular Disease
DX: I50.9 Heart failure, unspecified (principal); I25.10 Atherosclerotic heart disease of native coronary artery without angina pectoris; E87.70 Fluid overload, unspecified; Z79.01 Long term (current) use of anticoagulants
CPT/HCPCS: 85610

== ENCOUNTER → 2016-09-30 | Outpatient (CLI) | payer MEDICARE, OTHER ==
[~2016-09-30] MED LIST changes: +CYANOCOBALAMIN (B-12) 1000 MCG/1 ML VIAL IM ONE; +CYANOCOBALAMIN (B-12) 1000 MCG/1 ML VIAL ONE; +MVI in SODIUM CHLORIDE 0.9% 1,010 ML ONE; +THIAMINE INJ 100 MG, MULTIPLE VITAMIN 10 ML, FOLIC ACID 1 MG, MAGNESIUM SULF SDV 50% 8 ... IV ONE
[2016-09-30 12:30] VITALS: BP 118/50
[2016-09-30 13:00] VITALS: BP 121/52
[2016-09-30 13:30] VITALS: BP 122/50
[2016-09-30 13:57] LABS: INR 2.6 (0.7-1.3); Prothrombin Time 31.7 sec (9.0-12.0)
[2016-09-30 15:15] VITALS: BP 137/60
== END | disposition home or self-care (01) ==
LOC: CHF HDHVI 11:48
PROVIDERS: ATTEND Internal Medicine Cardiovascular Disease
DX: I48.91 Unspecified atrial fibrillation (principal); E03.9 Hypothyroidism, unspecified; E86.0 Dehydration; R53.1 Weakness
CPT/HCPCS: 85610; 96365; 96366; 96372; G0463; J3411; J3420; J3475

== ENCOUNTER → 2016-10-04 | Outpatient (CLI) | payer MEDICARE, OTHER ==
[~2016-10-04] MED LIST changes: -CYANOCOBALAMIN (B-12) 1000 MCG/1 ML VIAL IM ONE; -CYANOCOBALAMIN (B-12) 1000 MCG/1 ML VIAL ONE; -MVI in SODIUM CHLORIDE 0.9% 1,010 ML ONE; -THIAMINE INJ 100 MG, MULTIPLE VITAMIN 10 ML, FOLIC ACID 1 MG, MAGNESIUM SULF SDV 50% 8 ... IV ONE
[2016-10-04 09:30] VITALS: BP 140/58
[2016-10-04 10:00] VITALS: BP 128/58
[2016-10-04 10:12] LABS: INR 3.3 (0.7-1.3); Prothrombin Time 39.9 sec (9.0-12.0)
[2016-10-04 12:29] LABS: Basophils # (auto) 0 uL; Basophils % (auto) 0.3 % (0.0-2.0); CONDITION Y; Eosinophils # (auto) 0 uL; Hematocrit 37.8 % (36.0-46.0); Hemoglobin 12.8 g/dL (12.2-16.2); Lymphocytes # (auto) 1.7 uL; Lymphocytes % (auto) 35.7 % (10.0-50.0); Mean Corpuscular Hgb Conc. 33.9 g/dL (32.0-36.0); Mean Corpuscular Volume 91.4 fL (80.0-100.0); Mean Platelet Volume 7.3 fL (7.4-10.4); Monocytes # (auto) 0.4 uL; Monocytes % (auto) 8.5 % (0.0-12.0); Neutrophils # (auto) 2.7 uL; Neutrophils % (auto) 55.5 % (37.0-80.0); Platelet Count (auto) 320 10^3/uL (140-450); Red Cell Distribution Width 16.4 % (11.6-16.0); White Blood Cell 4.8 10^3/uL (4.4-10.8)
[2016-10-04 12:52] LABS: BUN/Creatinine Ratio 18.6; Calcium 8.9 mg/dL (8.5-10.1); Magnesium 2.8 mg/dL (1.6-2.6); Potassium 3.8 mmol/L (3.5-5.1)
== END | disposition home or self-care (01) ==
LOC: CHF HDHVI 09:36
PROVIDERS: ATTEND Internal Medicine Cardiovascular Disease
DX: I10 Essential (primary) hypertension (principal); D64.9 Anemia, unspecified; E83.42 Hypomagnesemia; Z79.01 Long term (current) use of anticoagulants; Z79.899 Other long term (current) drug therapy
CPT/HCPCS: 36415; 80048; 83735; 85025; 85610; G0463

== ENCOUNTER → 2016-10-06 | Outpatient (CLI) | payer MEDICARE, OTHER ==
[~2016-10-06] MED LIST changes: +AMIO200T33; +LOSA100T27; +SIMV-8
[2016-10-06 09:55] VITALS: BP 141/65
[2016-10-06 10:45] VITALS: BP 140/66
[2016-10-06 11:22] LABS: INR 3.7 (0.7-1.3); Prothrombin Time 44.9 sec (9.0-12.0)
== END | disposition home or self-care (01) ==
LOC: CHF HDHVI 10:21
PROVIDERS: ATTEND Internal Medicine Cardiovascular Disease
DX: C92.01 Acute myeloblastic leukemia, in remission (principal); I25.10 Atherosclerotic heart disease of native coronary artery without angina pectoris; I48.91 Unspecified atrial fibrillation
CPT/HCPCS: 85610; G0463

== ENCOUNTER → 2016-10-15 | Outpatient (CLI) | payer MEDICARE, OTHER ==
[~2016-10-15] MED LIST changes: -AMIO200T33; +CYANOCOBALAMIN (B-12) 1000 MCG/1 ML VIAL IM ONE; +CYANOCOBALAMIN (B-12) 1000 MCG/1 ML VIAL ONE; -LOSA100T27; -SIMV-8
[2016-10-15 13:15] VITALS: BP 149/64
[2016-10-15 13:45] VITALS: BP 140/65
== END | disposition home or self-care (01) ==
LOC: CHF HDHVI 13:30
PROVIDERS: ATTEND Internal Medicine Cardiovascular Disease
DX: C92.10 Chronic myeloid leukemia, BCR/ABL-positive, not having achieved remission (principal); I11.0 Hypertensive heart disease with heart failure; I50.9 Heart failure, unspecified; I48.91 Unspecified atrial fibrillation; D64.9 Anemia, unspecified
CPT/HCPCS: 96372; G0463; J3420

== ENCOUNTER → 2016-10-22 | Outpatient (CLI) | payer MEDICARE, OTHER ==
[~2016-10-22] MED LIST changes: -CYANOCOBALAMIN (B-12) 1000 MCG/1 ML VIAL IM ONE; -CYANOCOBALAMIN (B-12) 1000 MCG/1 ML VIAL ONE
[2016-10-22 12:40] VITALS: BP 144/63
[2016-10-22 13:15] VITALS: BP 145/57
[2016-10-22 16:37] LABS: INR 1.6 (0.7-1.3); Prothrombin Time 19.4 sec (9.0-12.0)
== END | disposition home or self-care (01) ==
LOC: CHF HDHVI 14:37
PROVIDERS: ATTEND Internal Medicine Cardiovascular Disease
DX: C92.00 Acute myeloblastic leukemia, not having achieved remission (principal); R79.1 Abnormal coagulation profile
CPT/HCPCS: 85610; G0463

== ENCOUNTER → 2016-10-29 | Outpatient (CLI) | payer MEDICARE, OTHER ==
[2016-10-29 10:40] VITALS: BP 135/65
[2016-10-29 12:09] VITALS: BP 146/76
[2016-10-29 12:18] LABS: INR 1.8 (0.7-1.3); Prothrombin Time 21.5 sec (9.0-12.0)
== END | disposition home or self-care (01) ==
LOC: CHF HDHVI 11:24
PROVIDERS: ATTEND Internal Medicine Cardiovascular Disease
DX: I50.9 Heart failure, unspecified (principal)
CPT/HCPCS: 85610; G0463

== ENCOUNTER → 2016-11-02 | Outpatient (CLI) | payer MEDICARE, OTHER ==
[~2016-11-02] MED LIST changes: +CYANOCOBALAMIN (B-12) 1000 MCG/1 ML VIAL IM ONE; +CYANOCOBALAMIN (B-12) 1000 MCG/1 ML VIAL ONE
[2016-11-02 11:20] VITALS: BP 144/65
[2016-11-02 12:35] VITALS: BP 139/62
== END | disposition home or self-care (01) ==
LOC: CHF HDHVI 11:38
PROVIDERS: ATTEND Internal Medicine Cardiovascular Disease
DX: I50.9 Heart failure, unspecified (principal)
CPT/HCPCS: 96372; G0463; J3420

== ENCOUNTER → 2016-11-08 | Outpatient (CLI) | payer MEDICARE, OTHER ==
[~2016-11-08] MED LIST changes: +SODIUM CHLORIDE 0.9% 500 ML IV ONE
[2016-11-08 14:07] LABS: Prothrombin Time 35.7 sec (9.0-12.0)
[2016-11-08 15:57] VITALS: BP 126/66
[2016-11-08 16:41] LABS: BUN/Creatinine Ratio 19.7; Calcium 8.8 mg/dL (8.5-10.1)
== END | disposition home or self-care (01) ==
LOC: CHF HDHVI 12:57
PROVIDERS: ATTEND Internal Medicine Cardiovascular Disease
DX: I10 Essential (primary) hypertension (principal); R53.83 Other fatigue; D64.9 Anemia, unspecified; E86.0 Dehydration; Z79.01 Long term (current) use of anticoagulants
CPT/HCPCS: 36415; 80048; 85610; G0463; J3420

== ENCOUNTER → 2016-11-12 | Outpatient (CLI) | payer MEDICARE, OTHER ==
[~2016-11-12] MED LIST changes: -CYANOCOBALAMIN (B-12) 1000 MCG/1 ML VIAL IM ONE; -CYANOCOBALAMIN (B-12) 1000 MCG/1 ML VIAL ONE; -SODIUM CHLORIDE 0.9% 500 ML IV ONE
[2016-11-12 14:00] VITALS: BP 139/65
[2016-11-12 14:40] VITALS: BP 137/69
== END | disposition home or self-care (01) ==
LOC: CHF HDHVI 14:40
PROVIDERS: ATTEND Internal Medicine Cardiovascular Disease
DX: I50.9 Heart failure, unspecified (principal)
CPT/HCPCS: G0463

== ENCOUNTER → 2016-11-15 | Outpatient (CLI) | payer MEDICARE, OTHER ==
[~2016-11-15] MED LIST changes: +CYANOCOBALAMIN (B-12) 1000 MCG/1 ML VIAL IM ONE; +CYANOCOBALAMIN (B-12) 1000 MCG/1 ML VIAL ONE
[2016-11-15 12:45] VITALS: BP 148/75
[2016-11-15 13:35] VITALS: BP 138/72
[2016-11-15 16:41] LABS: Basophils # (auto) 0 uL; Basophils % (auto) 0.2 % (0.0-2.0); Eosinophils # (auto) 0 uL; Eosinophils % (auto) 0.1 % (0.0-7.0); Hematocrit 36.2 % (36.0-46.0); Hemoglobin 12.4 g/dL (12.2-16.2); Lymphocytes # (auto) 1.6 uL; Lymphocytes % (auto) 42.9 % (10.0-50.0); Mean Corpuscular Hemoglobin 30.9 pg (28.0-32.0); Mean Corpuscular Hgb Conc. 34.3 g/dL (32.0-36.0); Mean Corpuscular Volume 90.1 fL (80.0-100.0); Mean Platelet Volume 7.5 fL (6.9-10.8); Monocytes # (auto) 0.4 uL; Monocytes % (auto) 11.3 % (0.0-12.0); Neutrophils # (auto) 1.7 uL; Neutrophils % (auto) 45.5 % (37.0-80.0); Nucleated Red Blood Cells % 0.2 %; Platelet Count (auto) 260 10^3/uL (140-450); Red Cell Distribution Width 16.4 % (11.8-14.3); White Blood Cell 3.8 10^3/uL (4.4-10.8)
[2016-11-15 17:31] LABS: INR 3.5 (0.7-1.3); Prothrombin Time 42.4 sec (9.0-12.0)
== END | disposition home or self-care (01) ==
LOC: CHF HDHVI 12:59
PROVIDERS: ATTEND Internal Medicine Cardiovascular Disease
DX: E55.9 Vitamin D deficiency, unspecified (principal); D51.9 Vitamin B12 deficiency anemia, unspecified
CPT/HCPCS: 36415; 82306; 82607; 83735; 85025; 85610; 96372; G0463; J3420

== ENCOUNTER → 2016-12-03 | Outpatient (CLI) | payer MEDICARE, OTHER ==
[~2016-12-03] MED LIST changes: -CYANOCOBALAMIN (B-12) 1000 MCG/1 ML VIAL IM ONE; -CYANOCOBALAMIN (B-12) 1000 MCG/1 ML VIAL ONE
[2016-12-03 12:20] VITALS: BP 136/65
[2016-12-03 12:40] VITALS: BP 120/60
[2016-12-03 14:42] LABS: INR 2.8 (0.7-1.3); Prothrombin Time 34.1 sec (9.0-12.0)
== END | disposition home or self-care (01) ==
LOC: CHF HDHVI 12:15
PROVIDERS: ATTEND Internal Medicine Cardiovascular Disease
DX: I48.91 Unspecified atrial fibrillation (principal)
CPT/HCPCS: 85610; G0463

== ENCOUNTER → 2016-12-10 | Outpatient (CLI) | payer MEDICARE, OTHER ==
[~2016-12-10] MED LIST changes: +MVI in SODIUM CHLORIDE 0.9% 1,010 ML ONE; +MVI in SODIUM CHLORIDE 0.9% 500 ML IVB ONE; +SODIUM CHLORIDE 0.9% 1,000 ML IV SCH
[2016-12-10 15:45] VITALS: BP 138/61
[2016-12-10 17:07] LABS: INR 2.9 (0.7-1.3); Prothrombin Time 34.8 sec (9.0-12.0)
== END | disposition home or self-care (01) ==
LOC: CHF HDHVI 12:28
PROVIDERS: ATTEND Internal Medicine Cardiovascular Disease
DX: I48.91 Unspecified atrial fibrillation (principal); I10 Essential (primary) hypertension; E86.0 Dehydration; R53.83 Other fatigue; C92.10 Chronic myeloid leukemia, BCR/ABL-positive, not having achieved remission
CPT/HCPCS: 85610; 96365; 96366; G0463; J3411; J3475

== ENCOUNTER → 2016-12-16 | Outpatient (CLI) | payer MEDICARE, OTHER ==
[~2016-12-16] MED LIST changes: +CYANOCOBALAMIN (B-12) 1000 MCG/1 ML VIAL ONE; +CYANOCOBALAMIN (B-12) 1000 MCG/1 ML VIAL SUBCUT ONE; +MVI in SODIUM CHLORIDE 0.9% 1,000 ML IVB ONE; -MVI in SODIUM CHLORIDE 0.9% 500 ML IVB ONE; -SODIUM CHLORIDE 0.9% 1,000 ML IV SCH
[2016-12-16 11:30] VITALS: BP 152/65
[2016-12-16 12:00] VITALS: BP 140/60
[2016-12-16 12:30] VITALS: BP 140/59
[2016-12-16 14:00] VITALS: BP 128/54
[2016-12-16 15:20] LABS: INR 2.8 (0.7-1.3)
[2016-12-16 15:33] VITALS: BP 150/62
[2016-12-16 16:05] LABS: Basophils # (auto) 0 uL; Basophils % (auto) 0.2 % (0.0-2.0); Eosinophils # (auto) 0 uL; Eosinophils % (auto) 0.2 % (0.0-7.0); Hematocrit 35.5 % (36.0-46.0); Hemoglobin 12.2 g/dL (12.2-16.2); Lymphocytes # (auto) 2.1 uL; Lymphocytes % (auto) 48.2 % (10.0-50.0); Mean Corpuscular Hemoglobin 31.1 pg (28.0-32.0); Mean Corpuscular Hgb Conc. 34.4 g/dL (32.0-36.0); Mean Corpuscular Volume 90.2 fL (80.0-100.0); Mean Platelet Volume 6.8 fL (6.9-10.8); Monocytes # (auto) 0.5 uL; Monocytes % (auto) 10.3 % (0.0-12.0); Neutrophils # (auto) 1.8 uL; Neutrophils % (auto) 41.1 % (37.0-80.0); Nucleated Red Blood Cells % 0.2 %; Platelet Count (auto) 241 10^3/uL (140-450); Red Cell Distribution Width 15.2 % (11.8-14.3); White Blood Cell 4.4 10^3/uL (4.4-10.8)
[2016-12-16 16:16] LABS: BUN/Creatinine Ratio 13.2; Calcium 8.8 mg/dL (8.5-10.1); Potassium 5.1 mmol/L (3.5-5.1)
== END | disposition home or self-care (01) ==
LOC: CHF HDHVI 09:25
PROVIDERS: ATTEND Internal Medicine Cardiovascular Disease
DX: I11.0 Hypertensive heart disease with heart failure (principal); I50.9 Heart failure, unspecified; D64.9 Anemia, unspecified; E86.0 Dehydration; R53.83 Other fatigue
CPT/HCPCS: 36415; 80048; 85025; 85610; 96365; 96366; 96372; G0463; J3411; J3420; J3475

== ENCOUNTER → 2016-12-22 | Outpatient (CLI) | payer MEDICARE, OTHER ==
[~2016-12-22] MED LIST changes: +CYANOCOBALAMIN (B-12) 1000 MCG/1 ML VIAL IM ONE; -CYANOCOBALAMIN (B-12) 1000 MCG/1 ML VIAL SUBCUT ONE; +KETOROLAC TROMETH 60MG/2ML VIAL IM ONE; +MUPIROCIN 2% OINT 22GM ONE; +MUPIROCIN 2% OINT 22GM TOP ONE; -MVI in SODIUM CHLORIDE 0.9% 1,000 ML IVB ONE; -MVI in SODIUM CHLORIDE 0.9% 1,010 ML ONE
[2016-12-22 10:30] VITALS: BP 156/70
[2016-12-22 12:00] VITALS: BP 156/70
== END | disposition home or self-care (01) ==
LOC: CHF HDHVI 10:58
PROVIDERS: ATTEND Internal Medicine Cardiovascular Disease
DX: I25.10 Atherosclerotic heart disease of native coronary artery without angina pectoris (principal); R53.83 Other fatigue; R06.02 Shortness of breath; R07.89 Other chest pain; R05 Cough
CPT/HCPCS: 96372; G0463; J1885; J3420

== ENCOUNTER → 2016-12-24 | Outpatient (CLI) | payer MEDICARE, OTHER ==
[~2016-12-24] MED LIST changes: -CYANOCOBALAMIN (B-12) 1000 MCG/1 ML VIAL IM ONE; -CYANOCOBALAMIN (B-12) 1000 MCG/1 ML VIAL ONE; +FUROSEMIDE 40 MG/4 ML VIAL IV ONE; +FUROSEMIDE 40 MG/4 ML VIAL ONE; -KETOROLAC TROMETH 60MG/2ML VIAL IM ONE; -MUPIROCIN 2% OINT 22GM ONE; -MUPIROCIN 2% OINT 22GM TOP ONE; +SODIUM CHLORIDE 0.9% 1,000 ML IV ONE
[2016-12-24 14:05] VITALS: BP 155/71
== END | disposition home or self-care (01) ==
LOC: CHF HDHVI 11:14
PROVIDERS: ATTEND Internal Medicine Cardiovascular Disease
DX: R06.02 Shortness of breath (principal); R53.1 Weakness; R05 Cough; J90 Pleural effusion, not elsewhere classified; I70.0 Atherosclerosis of aorta
CPT/HCPCS: 71020; 85610; 96361; 96374; G0463; J1940; 96360

== ENCOUNTER → 2016-12-27 | Outpatient (CLI) | payer MEDICARE, OTHER ==
[~2016-12-27] MED LIST changes: -SODIUM CHLORIDE 0.9% 1,000 ML IV ONE
[2016-12-27 11:20] VITALS: BP 134/62
[2016-12-27 12:20] VITALS: BP 150/70
[2016-12-27 16:42] LABS: BUN/Creatinine Ratio 22.9; Calcium 9.1 mg/dL (8.5-10.1); Potassium 4.1 mmol/L (3.5-5.1)
[2016-12-27 17:15] LABS: Basophils # (auto) 0 uL; Basophils % (auto) 0.4 % (0.0-2.0); Eosinophils # (auto) 0 uL; Eosinophils % (auto) 0.1 % (0.0-7.0); Hematocrit 36.5 % (36.0-46.0); Hemoglobin 12.2 g/dL (12.2-16.2); Lymphocytes # (auto) 1.6 uL; Mean Corpuscular Hemoglobin 29.9 pg (28.0-32.0); Mean Corpuscular Hgb Conc. 33.5 g/dL (32.0-36.0); Mean Corpuscular Volume 89.4 fL (80.0-100.0); Monocytes # (auto) 0.4 uL; Monocytes % (auto) 9.4 % (0.0-12.0); Neutrophils % (auto) 50.1 % (37.0-80.0); Nucleated Red Blood Cells % 0.6 %; Platelet Count (auto) 329 10^3/uL (140-450); Red Blood Cells 4.08 10^6/uL (4.0-5.20)
== END | disposition home or self-care (01) ==
LOC: CHF HDHVI 11:32
PROVIDERS: ATTEND Internal Medicine Cardiovascular Disease
DX: I10 Essential (primary) hypertension (principal); C92.10 Chronic myeloid leukemia, BCR/ABL-positive, not having achieved remission; D64.9 Anemia, unspecified; R06.02 Shortness of breath; I48.91 Unspecified atrial fibrillation
CPT/HCPCS: 36415; 80048; 85025; 96374; G0463; J1940

== ENCOUNTER → 2017-02-04 | Outpatient (CLI) | payer MEDICARE, OTHER ==
[~2017-02-04] MED LIST changes: -FUROSEMIDE 40 MG/4 ML VIAL IV ONE; -FUROSEMIDE 40 MG/4 ML VIAL ONE
[2017-02-04 10:45] VITALS: BP 125/57
[2017-02-04 11:37] LABS: INR 1.5 (0.7-1.3); Prothrombin Time 18.3 sec (9.0-12.0)
== END | disposition home or self-care (01) ==
LOC: CHF HDHVI 11:20
PROVIDERS: ATTEND Internal Medicine Cardiovascular Disease
DX: I48.91 Unspecified atrial fibrillation (principal)
CPT/HCPCS: 85610; G0463

== ENCOUNTER → 2017-02-07 | Outpatient (CLI) | payer MEDICARE, OTHER ==
[2017-02-07 14:00] VITALS: BP 141/54
[2017-02-07 14:50] VITALS: BP 137/60
== END | disposition home or self-care (01) ==
LOC: CHF HDHVI 14:10
PROVIDERS: ATTEND Internal Medicine Cardiovascular Disease
DX: C92.20 Atypical chronic myeloid leukemia, BCR/ABL-negative, not having achieved remission (principal); R21 Rash and other nonspecific skin eruption; I50.9 Heart failure, unspecified
CPT/HCPCS: G0463

== ENCOUNTER → 2017-02-16 | Outpatient (CLI) | payer MEDICARE, OTHER ==
[~2017-02-16] VITALS: Ht 30.5 cm; Wt 0.5 kg
[~2017-02-16] MED LIST changes: +CYANOCOBALAMIN (B-12) 1000 MCG/1 ML VIAL IM ONE; +CYANOCOBALAMIN (B-12) 1000 MCG/1 ML VIAL ONE
[2017-02-16 10:30] VITALS: BP 136/61
[2017-02-16 11:02] LABS: INR 1.8 (0.7-1.3); Prothrombin Time 21.4 sec (9.0-12.0)
== END | disposition home or self-care (01) ==
LOC: CHF HDHVI 10:34
PROVIDERS: ATTEND Internal Medicine Cardiovascular Disease
DX: I50.9 Heart failure, unspecified (principal); D64.9 Anemia, unspecified; R53.83 Other fatigue
CPT/HCPCS: 85610; 96372; G0463; J3420

== ENCOUNTER → 2017-03-23 | Outpatient (CLI) | payer MEDICARE, OTHER ==
[~2017-03-23] VITALS: Ht 30.5 cm; Wt 0.5 kg
[2017-03-23 14:36] VITALS: BP 155/67
[2017-03-23 15:03] VITALS: BP 145/68
== END ==
LOC: CHF HDHVI 14:40
PROVIDERS: ATTEND Internal Medicine Cardiovascular Disease
DX: C95.90 Leukemia, unspecified not having achieved remission (principal); D64.9 Anemia, unspecified; I48.91 Unspecified atrial fibrillation; I50.9 Heart failure, unspecified
CPT/HCPCS: 85610; 96372; G0463; J3420

== ENCOUNTER → 2017-03-30 | Outpatient (CLI) | payer MEDICARE, OTHER ==
[~2017-03-30] MED LIST changes: -CYANOCOBALAMIN (B-12) 1000 MCG/1 ML VIAL IM ONE; -CYANOCOBALAMIN (B-12) 1000 MCG/1 ML VIAL ONE
[2017-03-30 16:25] VITALS: BP 152/79
[2017-03-30 16:40] VITALS: BP 155/79
== END | disposition home or self-care (01) ==
LOC: CHF HDHVI 16:31
PROVIDERS: ATTEND Internal Medicine Cardiovascular Disease
DX: I50.9 Heart failure, unspecified (principal); I48.0 Paroxysmal atrial fibrillation; Z79.01 Long term (current) use of anticoagulants
CPT/HCPCS: 85610; G0463

== ENCOUNTER → 2017-05-18 | Outpatient (CLI) | payer MEDICARE, OTHER | END | disposition home or self-care (01) | LOC: LAB 10:46 | PROVIDERS: ATTEND Internal Medicine Cardiovascular Disease | DX: R79.1 Abnormal coagulation profile (principal) | CPT/HCPCS: 85610 ==

== ENCOUNTER → 2017-06-06 | Outpatient (CLI) | payer MEDICARE, OTHER ==
[2017-06-06 11:20] VITALS: BP 136/64
[2017-06-06 11:50] VITALS: BP 149/71
[2017-06-06] MEDS: CYANOCOBALAMIN (B-12) 1000 MCG/1 ML VIAL IM ONE (11:58)
[2017-06-06] MEDS: CYANOCOBALAMIN (B-12) 1000 MCG/1 ML VIAL ONE (11:58)
== END | disposition home or self-care (01) ==
LOC: CHF HDHVI 11:27
PROVIDERS: ATTEND Internal Medicine Cardiovascular Disease
DX: I48.91 Unspecified atrial fibrillation (principal); I11.0 Hypertensive heart disease with heart failure; I50.9 Heart failure, unspecified; F41.9 Anxiety disorder, unspecified
CPT/HCPCS: 85610; 96372; G0463; J3420

== ENCOUNTER → 2017-08-10 | Outpatient (CLI) | payer MEDICARE, OTHER ==
[~2017-08-10] VITALS: Ht 30.5 cm; Wt 0.5 kg
[~2017-08-10] MED LIST changes: +CYANOCOBALAMIN (B-12) 1000 MCG/1 ML VIAL IM ONE; +CYANOCOBALAMIN (B-12) 1000 MCG/1 ML VIAL ONE; +FUROSEMIDE 40 MG/4 ML VIAL IV ONE; +FUROSEMIDE 40 MG/4 ML VIAL ONE; +KETOROLAC TROMETH 60MG/2ML VIAL IM ONE; +POTASSIUM CHL 20 Meq TABLET PO ONE
[2017-08-10 14:25] VITALS: BP 137/63
[2017-08-10 15:50] VITALS: BP 138/75
[2017-08-10 16:06] LABS: Basophils # (auto) 0 uL; Basophils % (auto) 0.4 % (0.0-2.0); Eosinophils # (auto) 0 uL; Eosinophils % (auto) 0.4 % (0.0-7.0); Hemoglobin 11.3 g/dL (12.2-16.2); Lymphocytes # (auto) 1.6 uL; Lymphocytes % (auto) 54.1 % (10.0-50.0); Mean Corpuscular Hemoglobin 30.3 pg (28.0-32.0); Mean Corpuscular Hgb Conc. 34.4 g/dL (32.0-36.0); Mean Corpuscular Volume 88.3 fL (80.0-100.0); Monocytes # (auto) 0.4 uL; Monocytes % (auto) 12.4 % (0.0-12.0); Neutrophils % (auto) 32.7 % (37.0-80.0); Nucleated Red Blood Cells % 0.3 %; Platelet Count (auto) 249 10^3/uL (140-450); Red Blood Cells 3.74 10^6/uL (4.0-5.20); Red Cell Distribution Width 14.9 % (11.8-14.3); White Blood Cell 2.9 10^3/uL (4.4-10.8)
[2017-08-10 16:14] LABS: BUN/Creatinine Ratio 16.1; Calcium 8.3 mg/dL (8.5-10.1); Magnesium 2.1 mg/dL (1.6-2.6); Potassium 4.5 mmol/L (3.5-5.1)
== END | disposition home or self-care (01) ==
LOC: CHF HDHVI 14:25
PROVIDERS: ATTEND Internal Medicine Cardiovascular Disease
DX: M54.5 Low back pain (principal); R06.02 Shortness of breath; D64.9 Anemia, unspecified; E83.40 Disorders of magnesium metabolism, unspecified; R60.0 Localized edema; I11.0 Hypertensive heart disease with heart failure; I50.9 Heart failure, unspecified
CPT/HCPCS: 36415; 80048; 83735; 85025; 85610; 96372; 96374; G0463; J1885; J1940; J3420

== ENCOUNTER → 2017-08-11 | Outpatient (CLI) | payer MEDICARE, OTHER ==
[~2017-08-11] VITALS: Ht 30.5 cm; Wt 0.5 kg
[~2017-08-11] MED LIST changes: -CYANOCOBALAMIN (B-12) 1000 MCG/1 ML VIAL IM ONE; -CYANOCOBALAMIN (B-12) 1000 MCG/1 ML VIAL ONE; -FUROSEMIDE 40 MG/4 ML VIAL IV ONE; -FUROSEMIDE 40 MG/4 ML VIAL ONE; -KETOROLAC TROMETH 60MG/2ML VIAL IM ONE; +MVI in SODIUM CHLORIDE 0.9% 1,000 ML IVB ONE; +MVI in SODIUM CHLORIDE 0.9% 1,010 ML ONE; -POTASSIUM CHL 20 Meq TABLET PO ONE
[2017-08-11 16:04] VITALS: BP 137/62
== END | disposition home or self-care (01) ==
LOC: CHF HDHVI 13:12
PROVIDERS: ATTEND Internal Medicine Cardiovascular Disease
DX: E86.0 Dehydration (principal); D64.9 Anemia, unspecified; E83.40 Disorders of magnesium metabolism, unspecified; R53.83 Other fatigue; I11.0 Hypertensive heart disease with heart failure; I50.9 Heart failure, unspecified; R60.0 Localized edema; M54.5 Low back pain
CPT/HCPCS: 96365; 96366; G0463; J3411; J3475

== ENCOUNTER → 2017-10-14 | Outpatient (CLI) | payer MEDICARE, BC ==
[~2017-10-14] MED LIST changes: -MVI in SODIUM CHLORIDE 0.9% 1,000 ML IVB ONE; -MVI in SODIUM CHLORIDE 0.9% 1,010 ML ONE
[2017-10-14 15:52] LABS: Urine Blood Negative /uL (Negative); Urine Specific Gravity 1.008 (1.001-1.035)
== END | disposition home or self-care (01) ==
LOC: LAB 12:32
PROVIDERS: ATTEND Internal Medicine Cardiovascular Disease
DX: N39.0 Urinary tract infection, site not specified (principal)
CPT/HCPCS: 81003; 87086

== ENCOUNTER → 2017-10-18 | Outpatient (CLI) | payer MEDICARE, BC ==
[~2017-10-18] MED LIST changes: +CYANOCOBALAMIN (B-12) 1000 MCG/1 ML VIAL IM ONE; +CYANOCOBALAMIN (B-12) 1000 MCG/1 ML VIAL ONE
[2017-10-18 12:32] VITALS: BP 140/66
[2017-10-18 13:20] VITALS: BP 134/58
[2017-10-18 16:23] LABS: BUN/Creatinine Ratio 12.1; Calcium 8.9 mg/dL (8.5-10.1); Magnesium 2.9 mg/dL (1.6-2.6); Potassium 4.4 mmol/L (3.5-5.1)
[2017-10-18 16:34] LABS: Basophils # (auto) 0 uL; Basophils % (auto) 0.3 % (0.0-2.0); Eosinophils # (auto) 0 uL; Eosinophils % (auto) 0.1 % (0.0-7.0); Hematocrit 36.3 % (36.0-46.0); Hemoglobin 12.5 g/dL (12.2-16.2); Lymphocytes # (auto) 1.5 uL; Lymphocytes % (auto) 46.8 % (10.0-50.0); Mean Corpuscular Hemoglobin 30.3 pg (28.0-32.0); Mean Corpuscular Hgb Conc. 34.5 g/dL (32.0-36.0); Mean Corpuscular Volume 87.9 fL (80.0-100.0); Monocytes # (auto) 0.3 uL; Monocytes % (auto) 10.6 % (0.0-12.0); Neutrophils # (auto) 1.4 uL; Neutrophils % (auto) 42.2 % (37.0-80.0); Nucleated Red Blood Cells % 0.4 %; Platelet Count (auto) 255 10^3/uL (140-450); Red Blood Cells 4.13 10^6/uL (4.0-5.20); Red Cell Distribution Width 15.1 % (11.8-14.3); White Blood Cell 3.2 10^3/uL (4.4-10.8)
== END | disposition home or self-care (01) ==
LOC: CHF HDHVI 12:40
PROVIDERS: ATTEND Internal Medicine Cardiovascular Disease
DX: C92.10 Chronic myeloid leukemia, BCR/ABL-positive, not having achieved remission (principal); D51.9 Vitamin B12 deficiency anemia, unspecified; E83.40 Disorders of magnesium metabolism, unspecified; I11.0 Hypertensive heart disease with heart failure; I50.9 Heart failure, unspecified
CPT/HCPCS: 36415; 80048; 83735; 85025; 85610; 96372; G0463; J3420

== ENCOUNTER → 2017-12-19 | Outpatient (CLI) | payer MEDICARE, BC ==
[~2017-12-19] MED LIST changes: +ONDA4TAB5 PO; +POTA10TA51 PO
[2017-12-19 12:57] LABS: Potassium 3.8 mmol/L (3.5-5.1)
[2017-12-19 13:21] LABS: Albumin 3.1 g/dL (3.4-5.0); BUN/Creatinine Ratio 12.5; Bilirubin, Total 0.5 mg/dL (0.2-1.0); Calcium 8.7 mg/dL (8.5-10.1); Magnesium 2.3 mg/dL (1.6-2.6); Total Protein 7.3 g/dL (6.4-8.2)
== END | disposition home or self-care (01) ==
LOC: CHF HDHVI 10:22
PROVIDERS: ATTEND Internal Medicine Cardiovascular Disease
DX: D51.3 Other dietary vitamin B12 deficiency anemia (principal); I11.0 Hypertensive heart disease with heart failure; I50.9 Heart failure, unspecified; E83.40 Disorders of magnesium metabolism, unspecified; I48.91 Unspecified atrial fibrillation; C92.10 Chronic myeloid leukemia, BCR/ABL-positive, not having achieved remission; N39.0 Urinary tract infection, site not specified
CPT/HCPCS: 36415; 80053; 83735; 93005; 96372; G0463; J3420

== ENCOUNTER → 2017-12-20 | Outpatient (CLI) | payer MEDICARE, BC ==
[~2017-12-20] MED LIST changes: -CYANOCOBALAMIN (B-12) 1000 MCG/1 ML VIAL IM ONE; -CYANOCOBALAMIN (B-12) 1000 MCG/1 ML VIAL ONE
== END | disposition home or self-care (01) ==
LOC: Rad HDHVI 15:11
PROVIDERS: ATTEND Internal Medicine Cardiovascular Disease
DX: I08.1 Rheumatic disorders of both mitral and tricuspid valves (principal); I49.5 Sick sinus syndrome; Z95.0 Presence of cardiac pacemaker
CPT/HCPCS: 93306

== ENCOUNTER 2017-12-28 23:10 | Inpatient (IN) | payer MEDICARE, BC ==
[~2017-12-28] VITALS: Ht 162.6 cm; Wt 83.3 kg
[~2017-12-28 23:10] MED LIST changes: -ONDA4TAB5 PO; -POTA10TA51 PO
[2017-12-29] VITALS: BP 134/55
[2017-12-29] MEDS ORDERED: FAMOTIDINE INJECTION 40 MG in SODIUM CHL 0.9% 100 ML IV ONE (01:10)
[2017-12-29] MEDS: SODIUM CHLORIDE 0.9% 1,000 ML IV SCH ×3 (01:11→21:40)
[2017-12-29] MEDS ORDERED: CHOLESTYRAMINE 4 GM POWDER GT ONE (01:15)
[2017-12-29] MEDS ORDERED: FAMOTIDINE (10MG/ML) 2ML VL IV ONE (01:45)
[2017-12-29 02:00] LABS: Basophils # (auto) 0 uL; Basophils % (auto) 0.2 % (0.0-2.0); Eosinophils # (auto) 0 uL; Hematocrit 31.5 % (36.0-46.0); Hemoglobin 10.7 g/dL (12.2-16.2); Lymphocytes # (auto) 3.1 uL; Lymphocytes % (auto) 51.3 % (10.0-50.0); Mean Corpuscular Hemoglobin 28.6 pg (28.0-32.0); Mean Corpuscular Hgb Conc. 33.9 g/dL (32.0-36.0); Mean Corpuscular Volume 84.4 fL (80.0-100.0); Monocytes # (auto) 0.3 uL; Monocytes % (auto) 5.7 % (0.0-12.0); Neutrophils # (auto) 2.6 uL; Neutrophils % (auto) 42.8 % (37.0-80.0); Nucleated Red Blood Cells % 0.1 %; Platelet Count (auto) 192 10^3/uL (140-450); Red Blood Cells 3.73 10^6/uL (4.0-5.20); Red Cell Distribution Width 15.2 % (11.8-14.3)
[2017-12-29 02:13] LABS: BUN/Creatinine Ratio 14.5; Potassium 3.4 mmol/L (3.5-5.1)
[2017-12-29 02:27] LABS: INR 3.71 (0.9-1.15); Partial Thromboplastin Time 40.1 sec (23.78-33.04); Prothrombin Time 36.9 sec (9.27-12.13)
[2017-12-29 03:08] LABS: Urine Bacteria FEW /hpf (None Seen); Urine Blood TRACE /uL (Negative); Urine Specific Gravity 1.006 (1.001-1.035); Urine WBC 5 /hpf (0 - 5)
[2017-12-29] MEDS ORDERED: POTA10TA51 PO (03:49)
[2017-12-29] MEDS ORDERED: ONDA4TAB5 PO (03:49)
[2017-12-29 05:00] VITALS: BP 126/61
[2017-12-29] MEDS: ALPRAZolam 0.25 MG TAB PO PRN ×2 (08:07→16:34)
[2017-12-29 09:00] VITALS: BP 129/71
[2017-12-29 09:55] LABS: Basophils # (auto) 0 uL; Basophils % (auto) 0.3 % (0.0-2.0); Eosinophils # (auto) 0 uL; Hematocrit 30.6 % (36.0-46.0); Hemoglobin 10.3 g/dL (12.2-16.2); Lymphocytes # (auto) 1.9 uL; Lymphocytes % (auto) 51.9 % (10.0-50.0); Mean Corpuscular Hemoglobin 28.5 pg (28.0-32.0); Mean Corpuscular Hgb Conc. 33.7 g/dL (32.0-36.0); Mean Corpuscular Volume 84.4 fL (80.0-100.0); Monocytes # (auto) 0.4 uL; Monocytes % (auto) 10.2 % (0.0-12.0); Neutrophils # (auto) 1.4 uL; Neutrophils % (auto) 37.6 % (37.0-80.0); Nucleated Red Blood Cells % 0.2 %; Platelet Count (auto) 231 10^3/uL (140-450); Red Blood Cells 3.63 10^6/uL (4.0-5.20); Red Cell Distribution Width 15.1 % (11.8-14.3); White Blood Cell 3.6 10^3/uL (4.4-10.8)
[2017-12-29] MEDS ORDERED: FAMOTIDINE INJECTION 40 MG in SODIUM CHL 0.9% 100 ML IV SCH (10:00)
[2017-12-29] MEDS ORDERED: FAMOTIDINE (10MG/ML) 2ML VL IV SCH (10:00)
[2017-12-29] MEDS: CHOLESTYRAMINE 4 GM POWDER GT SCH ×2 (10:36→23:20)
[2017-12-29 12:00] VITALS: BP 124/68
[2017-12-29] MEDS ORDERED: GOLYTELY 4L KIT PO ONE (17:00)
[2017-12-29 21:00] VITALS: BP 133/57
[2017-12-29] MEDS: PANTOPRAZOLE 40 MG/10 ML VIAL IV SCH (21:41)
[2017-12-30] VITALS (11 sets, daily range): BP systolic 120–146; BP diastolic 51–85
[2017-12-30] MEDS: SODIUM CHLORIDE 0.9% 1,000 ML IV SCH ×2 (05:37→17:30)
[2017-12-30] MEDS ORDERED: GOLYTELY 4L KIT PO ONE (06:00)
[2017-12-30 06:42] LABS: INR 3.14 (0.9-1.15); Prothrombin Time 31.5 sec (9.27-12.13)
[2017-12-30 06:45] LABS: Basophils # (auto) 0 uL; Basophils % (auto) 0.4 % (0.0-2.0); Eosinophils # (auto) 0 uL; Eosinophils % (auto) 0.1 % (0.0-7.0); Hematocrit 29.5 % (36.0-46.0); Hemoglobin 9.5 g/dL (12.2-16.2); Lymphocytes # (auto) 1.3 uL; Lymphocytes % (auto) 51.9 % (10.0-50.0); Mean Corpuscular Hemoglobin 28.6 pg (28.0-32.0); Mean Corpuscular Hgb Conc. 32.2 g/dL (32.0-36.0); Mean Corpuscular Volume 88.8 fL (80.0-100.0); Monocytes # (auto) 0.3 uL; Monocytes % (auto) 11.4 % (0.0-12.0); Neutrophils # (auto) 0.9 uL; Neutrophils % (auto) 36.2 % (37.0-80.0); Nucleated Red Blood Cells % 0.3 %; Platelet Count (auto) 212 10^3/uL (140-450); Red Blood Cells 3.32 10^6/uL (4.0-5.20); Red Cell Distribution Width 16.1 % (11.8-14.3); White Blood Cell 2.6 10^3/uL (4.4-10.8)
[2017-12-30] MEDS ORDERED: SODIUM CHLORIDE LOCK 10 ML ONE (08:22)
[2017-12-30] MEDS ORDERED: LIDOCAINE VISCOUS 2% 15ML UD ONE (08:22)
[2017-12-30] MEDS ORDERED: MIDAZOLAM HCL 5 MG/ML-1ML VIAL ONE (08:23)
[2017-12-30] MEDS ORDERED: fentaNYL CITRATE 100 MCG/2 ML VL ONE (08:23)
[2017-12-30] MEDS: PANTOPRAZOLE 40 MG/10 ML VIAL IV SCH ×2 (09:28→22:58)
[2017-12-30] MEDS: ALPRAZolam 0.25 MG TAB PO PRN ×2 (09:28→22:58)
[2017-12-30] MEDS: CHOLESTYRAMINE 4 GM POWDER GT SCH ×2 (11:00→23:50)
[2017-12-30] MEDS ORDERED: ONDANSETRON ODT 4 MG TAB PO PRN (20:30)
[2017-12-31] VITALS (11 sets, daily range): BP systolic 119–157; BP diastolic 52–76
[2017-12-31] MEDS: LEVOTHYROXINE SODIUM 25 MCG TAB PO SCH (06:25)
[2017-12-31 09:07] LABS: INR 1.68 (0.9-1.15); Prothrombin Time 17.5 sec (9.27-12.13)
[2017-12-31] MEDS: POTASSIUM CHL 10 Meq TABLET PO SCH (10:00)
[2017-12-31] MEDS: PANTOPRAZOLE 40 MG/10 ML VIAL IV SCH ×2 (10:00→22:43)
[2017-12-31] MEDS: METOPROLOL TARTRATE 50 MG TAB PO SCH ×2 (10:00→22:43)
[2017-12-31] MEDS: DASATINIB 70 MG PO SCH ×2 (10:00→22:00)
[2017-12-31] MEDS: CHOLESTYRAMINE 4 GM POWDER GT SCH ×2 (10:52→23:06)
[2017-12-31] MEDS: SODIUM CHLORIDE 0.9% 1,000 ML IV SCH ×2 (11:45)
[2017-12-31] MEDS ORDERED: LIDOCAINE 2% (LOCAL ANESTH.) PF 5ml SDV ONE (11:49)
[2017-12-31] MEDS ORDERED: SODIUM CHLORIDE LOCK 10 ML ONE (11:49)
[2017-12-31] MEDS ORDERED: diphenhdrAMINE 50mg/ml (500mg/10ml VIAL) ONE (11:49)
[2017-12-31] MEDS: MIDAZOLAM HCL 5 MG/ML-1ML VIAL ONE ×6 (12:17→12:49)
[2017-12-31] MEDS: fentaNYL CITRATE 100 MCG/2 ML VL ONE ×6 (12:17→12:49)
[2017-12-31] MEDS: FUROSEMIDE 40 MG/4 ML VIAL IV ONE ×2 (13:05→13:07)
[2017-12-31] MEDS ORDERED: FUROSEMIDE 20 MG/2 ML VIAL ONE (13:07)
[2017-12-31] MEDS: ALPRAZolam 0.25 MG TAB PO PRN ×2 (14:51→23:06)
[2018-01-01] MEDS: SODIUM CHLORIDE 0.9% 1,000 ML IV SCH ×3 (00:18→12:00)
[2018-01-01 05:07] VITALS: BP 144/69
[2018-01-01 06:11] LABS: Basophils # (auto) 0 uL; Basophils % (auto) 0.3 % (0.0-2.0); Eosinophils # (auto) 0 uL; Eosinophils % (auto) 0.4 % (0.0-7.0); Hemoglobin 9.9 g/dL (12.2-16.2); Lymphocytes # (auto) 1.8 uL; Mean Corpuscular Hemoglobin 28.9 pg (28.0-32.0); Mean Corpuscular Volume 84.9 fL (80.0-100.0); Monocytes # (auto) 0.4 uL; Monocytes % (auto) 12.8 % (0.0-12.0); Neutrophils # (auto) 0.8 uL; Neutrophils % (auto) 27.5 % (37.0-80.0); Nucleated Red Blood Cells % 0.2 %; Platelet Count (auto) 229 10^3/uL (140-450); Red Blood Cells 3.42 10^6/uL (4.0-5.20); Red Cell Distribution Width 15.3 % (11.8-14.3); White Blood Cell 3.1 10^3/uL (4.4-10.8)
[2018-01-01] MEDS: LEVOTHYROXINE SODIUM 25 MCG TAB PO SCH (06:42)
[2018-01-01 07:19] VITALS: BP 137/70
[2018-01-01] MEDS: PANTOPRAZOLE 40 MG/10 ML VIAL IV SCH ×2 (10:33→22:13)
[2018-01-01] MEDS: METOPROLOL TARTRATE 50 MG TAB PO SCH ×2 (10:34→22:00)
[2018-01-01] MEDS: POTASSIUM CHL 10 Meq TABLET PO SCH (10:34)
[2018-01-01] MEDS: CHOLESTYRAMINE 4 GM POWDER GT SCH ×2 (11:00→23:00)
[2018-01-01 12:26] VITALS: BP 145/68
[2018-01-01 16:17] VITALS: BP 148/69
[2018-01-01 21:42] VITALS: BP 138/94
[2018-01-01] MEDS: DASATINIB 70 MG PO SCH (22:00)
[2018-01-01] MEDS: ALPRAZolam 0.25 MG TAB PO PRN (23:48)
[2018-01-02 05:36] VITALS: BP 130/68
[2018-01-02] MEDS: LEVOTHYROXINE SODIUM 25 MCG TAB PO SCH (06:55)
[2018-01-02] MEDS: SODIUM CHLORIDE 0.9% 1,000 ML IV SCH ×2 (06:56→13:45)
[2018-01-02 08:50] VITALS: BP 134/60
[2018-01-02] MEDS: ALPRAZolam 0.25 MG TAB PO PRN (09:18)
[2018-01-02] MEDS: POTASSIUM CHL 10 Meq TABLET PO SCH (10:24)
[2018-01-02] MEDS: PANTOPRAZOLE 40 MG/10 ML VIAL IV SCH (10:24)
[2018-01-02] MEDS: METOPROLOL TARTRATE 50 MG TAB PO SCH (10:25)
[2018-01-02] MEDS: CHOLESTYRAMINE 4 GM POWDER GT SCH (11:00)
[2018-01-02 13:00] VITALS: BP 138/60
[2018-01-02 17:00] VITALS: BP 152/74
[2018-01-02 18:40] VITALS: BP 121/71
== END 2018-01-02 18:45 | disposition home or self-care (01) | DRG 813 ==
LOC: TELE-CENTR 23:10 → CENTRAL 23:37
PROVIDERS: ADMIT Internal Medicine Cardiovascular Disease; ATTEND Internal Medicine Cardiovascular Disease
PROC: 30233L1 Transfusion of Nonautologous Fresh Plasma into Peripheral Vein, Percutaneous Approach (ICD-10-PCS; 2017-12-30)
PROC: 30233K1 Transfusion of Nonautologous Frozen Plasma into Peripheral Vein, Percutaneous Approach (ICD-10-PCS; 2017-12-30)
PROC: 0DJD8ZZ Inspection of Lower Intestinal Tract, Via Natural or Artificial Opening Endoscopic (ICD-10-PCS; principal; 2017-12-31 12:15)
PROC: 0DJ08ZZ Inspection of Upper Intestinal Tract, Via Natural or Artificial Opening Endoscopic (ICD-10-PCS; 2017-12-31 12:15)
DX: D68.32 Hemorrhagic disorder due to extrinsic circulating anticoagulants (principal); K57.31 Diverticulosis of large intestine without perforation or abscess with bleeding; D68.59 Other primary thrombophilia; C91.10 Chronic lymphocytic leukemia of B-cell type not having achieved remission; T45.515A Adverse effect of anticoagulants, initial encounter; K64.8 Other hemorrhoids; I10 Essential (primary) hypertension; K64.4 Residual hemorrhoidal skin tags; R63.4 Abnormal weight loss; I48.0 Paroxysmal atrial fibrillation; Z79.01 Long term (current) use of anticoagulants; Z86.718 Personal history of other venous thrombosis and embolism; Y92.89 Other specified places as the place of occurrence of the external cause; Z90.710 Acquired absence of both cervix and uterus; Z68.31 Body mass index [BMI] 31.0-31.9, adult
CPT/HCPCS: 36415; 71045; 80048; 81001; 82270; 85025; 85610; 85730; 86850; 86900; 86901; 86920; 87045; 87493; 87899; A6257; C9113; G0378; J1200; J2001; J2250; J3490

== ENCOUNTER → 2018-01-11 | Outpatient (CLI) | payer MEDICARE, BC ==
[~2018-01-11] MED LIST changes: +ONDA4TAB5 PO; +POTA10TA51 PO
[2018-01-11 15:53] LABS: Basophils # (auto) 0 uL; Basophils % (auto) 0.4 % (0.0-2.0); Eosinophils # (auto) 0 uL; Eosinophils % (auto) 0.1 % (0.0-7.0); Hematocrit 33.2 % (36.0-46.0); Hemoglobin 10.9 g/dL (12.2-16.2); Lymphocytes # (auto) 1.4 uL; Mean Corpuscular Hemoglobin 27.8 pg (28.0-32.0); Mean Corpuscular Hgb Conc. 32.8 g/dL (32.0-36.0); Mean Corpuscular Volume 84.9 fL (80.0-100.0); Monocytes # (auto) 0.3 uL; Monocytes % (auto) 10.3 % (0.0-12.0); Neutrophils # (auto) 1.4 uL; Neutrophils % (auto) 44.2 % (37.0-80.0); Nucleated Red Blood Cells % 1.8 %; Platelet Count (auto) 298 10^3/uL (140-450); Red Blood Cells 3.91 10^6/uL (4.0-5.20); Red Cell Distribution Width 15.4 % (11.8-14.3); White Blood Cell 3.2 10^3/uL (4.4-10.8)
[2018-01-11 16:10] LABS: BUN/Creatinine Ratio 17.2; Calcium 9.1 mg/dL (8.5-10.1)
== END | disposition home or self-care (01) ==
LOC: LAB 12:52
PROVIDERS: ATTEND Internal Medicine Cardiovascular Disease
DX: I10 Essential (primary) hypertension (principal); D64.9 Anemia, unspecified
CPT/HCPCS: 36415; 80048; 85025

== ENCOUNTER → 2018-02-17 | Outpatient (CLI) | payer MEDICARE, BC ==
[~2018-02-17] VITALS: Ht 30.5 cm; Wt 81.6 kg
[~2018-02-17] MED LIST changes: +MVI in SODIUM CHLORIDE 0.9% 1,010 ML ONE; +MVI in SODIUM CHLORIDE 0.9% 500 ML IVB ONE; +SODIUM CHL 3% 500 ML IV ONE; +SODIUM CHL 3% 500 ML ONE
--- NOTE | 2018-02-17 10:00 | NUR ---
IN TO CLINIC WITH REPORT OF EXTREME FATIGUE AT HOME WITH DIZZINESS AND SOB X 3 DAYS. NOTED TO HAVE ELEVATED HEART RATE IN 130-140. 12 LEAD EKG DONE WHICH SHOWED AFIB. PT DOES HAVE A HISTORY OF AFIB BUT REPORTS THAT IT WAS "LONG AGO". LABS DRAWN AND SENT. IV PLACED TO LEFT AC AND TOLERATED WELL. START MVI BAG UNTIL LABS RETURNED.
[2018-02-17 10:53] LABS: Basophils # (auto) 0 uL; Basophils % (auto) 0.1 % (0.0-2.0); Eosinophils # (auto) 0 uL; Hematocrit 33.1 % (36.0-46.0); Hemoglobin 10.8 g/dL (12.2-16.2); Lymphocytes # (auto) 1.6 uL; Lymphocytes % (auto) 31.8 % (10.0-50.0); Mean Corpuscular Hemoglobin 24.8 pg (28.0-32.0); Mean Corpuscular Hgb Conc. 32.6 g/dL (32.0-36.0); Mean Corpuscular Volume 76.2 fL (80.0-100.0); Monocytes # (auto) 0.5 uL; Monocytes % (auto) 10.8 % (0.0-12.0); Neutrophils # (auto) 2.9 uL; Neutrophils % (auto) 57.3 % (37.0-80.0); Nucleated Red Blood Cells % 0.1 %; Platelet Count (auto) 380 10^3/uL (140-450); Red Blood Cells 4.35 10^6/uL (4.0-5.20); Red Cell Distribution Width 15.9 % (11.8-14.3)
[2018-02-17 11:01] LABS: BUN/Creatinine Ratio 24.7; Calcium 8.6 mg/dL (8.5-10.1); Magnesium 2.5 mg/dL (1.6-2.6); Potassium 4.4 mmol/L (3.5-5.1)
--- NOTE | 2018-02-17 11:45 | NUR ---
12 LEAD EKG COMPLETED. LABS RETURNED CXR COMPLETED. DR SCOTT AWARE AND ORDERS FOR HYPERTONIC SALINE RECIEVED. MVI BAG DCD AND HYPERTONIC SALINE STARTED.
--- NOTE | 2018-02-17 13:45 | NUR ---
TOLERATING IV FLUIDS WELL. IN ATTENDANCE. DENIES COMPLAINTS AT THIS TIME. VS WNL
[2018-02-17 15:00] VITALS: BP 120/58
--- NOTE | 2018-02-17 15:00 | NUR ---
IV TO RIGHT AC DCD; PT TOLERATED IV FLUIDS WELL. IN ATTENDANCE. DENIES PAIN AT THIS TIME VS WNL. PT TO RETURN TO CLINI ON TuesdayPR ADDITIONAL LABS AND STATUS MONITORING. Discharge Instructions See e-MAR for any mediations given with this visit. Patient education given on disease process. Patient verbalized understanding. Previous labs reviewed. Patient discharged in stable condition with after care instructions and follow up appointment.
== END | disposition home or self-care (01) ==
LOC: CHF HDHVI 10:10
PROVIDERS: ATTEND Internal Medicine Cardiovascular Disease
DX: E83.40 Disorders of magnesium metabolism, unspecified (principal); I11.0 Hypertensive heart disease with heart failure; I50.9 Heart failure, unspecified; R53.83 Other fatigue; R53.1 Weakness; R06.02 Shortness of breath; R42 Dizziness and giddiness; E87.1 Hypo-osmolality and hyponatremia; R00.9 Unspecified abnormalities of heart beat; I25.10 Atherosclerotic heart disease of native coronary artery without angina pectoris; I48.0 Paroxysmal atrial fibrillation; J44.9 Chronic obstructive pulmonary disease, unspecified; C91.10 Chronic lymphocytic leukemia of B-cell type not having achieved remission; E03.9 Hypothyroidism, unspecified; E11.9 Type 2 diabetes mellitus without complications; K57.30 Diverticulosis of large intestine without perforation or abscess without bleeding; E78.00 Pure hypercholesterolemia, unspecified; E78.5 Hyperlipidemia, unspecified; F41.8 Other specified anxiety disorders; Z79.899 Other long term (current) drug therapy; Z90.710 Acquired absence of both cervix and uterus; Z79.01 Long term (current) use of anticoagulants; Z86.718 Personal history of other venous thrombosis and embolism; Z95.0 Presence of cardiac pacemaker
CPT/HCPCS: 36415; 71046; 80048; 83735; 85025; 93005; 96365; 96366; 96368; G0463; J3411; J3475

== ENCOUNTER → 2018-02-20 | Outpatient (CLI) | payer MEDICARE, BC ==
[~2018-02-20] VITALS: Ht 30.5 cm; Wt 82.6 kg
[~2018-02-20] MED LIST changes: -MVI in SODIUM CHLORIDE 0.9% 1,010 ML ONE; -MVI in SODIUM CHLORIDE 0.9% 500 ML IVB ONE
--- NOTE | 2018-02-20 08:15 | NUR ---
CHF PT TO CHF CLINIC C/O SOB, UNABLE TO SLEEP AND AFIB. HX LEUKEMIA
[2018-02-20 09:14] LABS: Basophils # (auto) 0 uL; Eosinophils # (auto) 0 uL; Lymphocytes # (auto) 1.2 uL; Mean Corpuscular Hemoglobin 25.1 pg (28.0-32.0)
[2018-02-20 09:15] LABS: Basophils % (auto) 0.3 % (0.0-2.0); Hematocrit 32.7 % (36.0-46.0); Hemoglobin 10.7 g/dL (12.2-16.2); Lymphocytes % (auto) 25.2 % (10.0-50.0); Mean Corpuscular Hgb Conc. 32.8 g/dL (32.0-36.0); Mean Corpuscular Volume 76.6 fL (80.0-100.0); Monocytes # (auto) 0.4 uL; Neutrophils # (auto) 3.1 uL; Neutrophils % (auto) 65.5 % (37.0-80.0); Nucleated Red Blood Cells % 0.1 %; Platelet Count (auto) 367 10^3/uL (140-450); Red Blood Cells 4.27 10^6/uL (4.0-5.20); Red Cell Distribution Width 16.1 % (11.8-14.3); White Blood Cell 4.7 10^3/uL (4.4-10.8)
[2018-02-20 09:32] LABS: BUN/Creatinine Ratio 20.9; Calcium 8.7 mg/dL (8.5-10.1); Potassium 3.9 mmol/L (3.5-5.1)
--- NOTE | 2018-02-20 09:45 | NUR ---
CHF IV insertion IV access obtained, via clean sterile technique by inserting 22 gauge catheter at after 1 attempt(s). IV secured properly. No trauma to site. Patient tolerated procedure well. LABS DRAWN PER MD SCOTT ORDER. NS 3 % AT 50ML/HR STARTED.
[2018-02-20 12:35] VITALS: BP 103/61
--- NOTE | 2018-02-20 12:35 | NUR ---
CHF IV removal IV DC'd with sterile technique, catheter fully intact. Pressure dressing applied to site. Patient tolerated procedure well. Discharged with aftercare instructions per MD. NOTE:
== END | disposition home or self-care (01) ==
LOC: Rad HDHVI 08:30
PROVIDERS: ATTEND Internal Medicine Cardiovascular Disease
DX: I25.10 Atherosclerotic heart disease of native coronary artery without angina pectoris (principal); I48.0 Paroxysmal atrial fibrillation; E87.1 Hypo-osmolality and hyponatremia; C91.10 Chronic lymphocytic leukemia of B-cell type not having achieved remission; I11.0 Hypertensive heart disease with heart failure; I50.9 Heart failure, unspecified; J44.9 Chronic obstructive pulmonary disease, unspecified; E11.9 Type 2 diabetes mellitus without complications; E03.9 Hypothyroidism, unspecified; I70.0 Atherosclerosis of aorta; R53.83 Other fatigue; E78.00 Pure hypercholesterolemia, unspecified; F41.8 Other specified anxiety disorders; E78.5 Hyperlipidemia, unspecified; Z79.01 Long term (current) use of anticoagulants; Z79.899 Other long term (current) drug therapy; Z95.0 Presence of cardiac pacemaker
CPT/HCPCS: 36415; 71046; 80048; 84443; 85025; 96365; 96366; G0463

== ENCOUNTER → 2018-02-22 | Outpatient (CLI) | payer MEDICARE, BC ==
[~2018-02-22] VITALS: Ht 1 cm; Wt 82.2 kg
[2018-02-22] VITALS (12 sets, daily range): BP systolic 99–136; BP diastolic 50–71
[~2018-02-22] MED LIST changes: +FUROSEMIDE 100 MG/10ML VIAL IV ONE; +FUROSEMIDE 40 MG/4 ML VIAL ONE; +POTASSIUM CHL 10 Meq TABLET PO ONE; +POTASSIUM CHL 20 Meq TABLET PO ONE
--- NOTE | 2018-02-22 09:10 | NUR ---
CHF PT TO CHF CLINIC FOR MD SCOTT ORDERED LABS, 3 % SODIUM IV DRIP AT 50ML/HR. PT C/O BILAT LE EDEMA 2 PLUS FEET. C/O SOB
--- NOTE | 2018-02-22 10:10 | NUR ---
CHF IV insertion IV access obtained, via clean sterile technique by inserting 22 gauge catheter at after attempt(s). IV secured properly. No trauma to site. Patient tolerated procedure well. IVP LASIX 80MG 1010.
--- NOTE | 2018-02-22 10:13 | NUR ---
CHF NS 3 % STARTED AT 1013 ORDERED.
--- NOTE | 2018-02-22 11:35 | NUR ---
CHF POTASSIUM CHLORIDE 30 MEQ PO ADMINISTERED.
[2018-02-22 12:22] LABS: Calcium 8.6 mg/dL (8.5-10.1); Potassium 4.2 mmol/L (3.5-5.1)
--- NOTE | 2018-02-22 12:45 | NUR ---
CHF V/S STABLE UP TO BATHROOM X 2
--- NOTE | 2018-02-22 14:45 | NUR ---
CHF PT UP TO BATHROOM X 2 .
[2018-03-24 13:45] VITALS: BP 123/67
--- NOTE | 2018-03-24 13:45 | NUR ---
INTERVENTIONS ENTERED FOR 02/22/18 FOR MAURICIO BARNES. Addendum: 03/24/18 at 1347 by Yue Lock RN RN Amended: Links added.
--- NOTE | 2018-03-24 13:46 | NUR ---
INTERVENTION ENTERED FOR 02/22/18 FOR MAURICIO BARNES Addendum: 03/24/18 at 1347 by Yue Lock RN RN Amended: Links added.
== END | disposition home or self-care (01) ==
LOC: CHF HDHVI 09:25
PROVIDERS: ATTEND Internal Medicine Cardiovascular Disease
DX: E87.1 Hypo-osmolality and hyponatremia (principal); J90 Pleural effusion, not elsewhere classified; I11.0 Hypertensive heart disease with heart failure; I50.32 Chronic diastolic (congestive) heart failure; F41.8 Other specified anxiety disorders; I25.10 Atherosclerotic heart disease of native coronary artery without angina pectoris; C91.10 Chronic lymphocytic leukemia of B-cell type not having achieved remission; J44.9 Chronic obstructive pulmonary disease, unspecified; E03.9 Hypothyroidism, unspecified; I48.0 Paroxysmal atrial fibrillation; I27.21 Secondary pulmonary arterial hypertension; E11.9 Type 2 diabetes mellitus without complications; E78.5 Hyperlipidemia, unspecified; E78.00 Pure hypercholesterolemia, unspecified; Z90.710 Acquired absence of both cervix and uterus; Z79.01 Long term (current) use of anticoagulants; Z79.899 Other long term (current) drug therapy; Z95.0 Presence of cardiac pacemaker; Z68.31 Body mass index [BMI] 31.0-31.9, adult
CPT/HCPCS: 36415; 80048; 96365; 96366; 96375; G0463; J1940

== ENCOUNTER → 2018-02-27 | Outpatient (CLI) | payer MEDICARE, BC ==
[~2018-02-27] MED LIST changes: +CEPH250C PO; +DICY10CA55 PO; +DIGO0.1262 PO; +DIPH25CA66 PO; +FURO40TA PO; -FUROSEMIDE 100 MG/10ML VIAL IV ONE; +FUROSEMIDE 20 MG/2 ML VIAL IV ONE; +FUROSEMIDE 20 MG/2 ML VIAL ONE; +MED20T PO; +POTA1TAB4 PO; +RIVA20TA PO; -SODIUM CHL 3% 500 ML IV ONE; -SODIUM CHL 3% 500 ML ONE
[2018-02-27 10:00] VITALS: BP 121/68
--- NOTE | 2018-02-27 10:00 | NUR ---
PT. TO CHF CLINIC WITH SPOUSE FOR C/O CONTINUED LOWER EXT. EDEMA AND LAB FOLLOW UP. STAT LAB ORDERED BY DR. SCOTT AND WILL EVAL. POST RESULTS.
[2018-02-27 10:01] LABS: Anion Gap 10 (5-15); BUN/Creatinine Ratio 27.5; Blood Urea Nitrogen 28 mg/dL (7-18); Calcium 8.7 mg/dL (8.5-10.1); Carbon Dioxide 26 mmol/L (21-32); Chloride 100 mmol/L (98-107); GFR African American 69 mL/min; GFR Non-African American 57 mL/min; Glucose 132 mg/dL (74-106); Potassium 3.9 mmol/L (3.5-5.1); Sodium 136 mmol/L (136-145)
--- NOTE | 2018-02-27 10:10 | NUR ---
LABS: STAT BMP DRAWN AND SENT.
--- NOTE | 2018-02-27 10:45 | NUR ---
MEDS: LAB RESULTS BACK WITH MD ORDERS RECEIVED AND CARRIED OUT. PT. MEDICATED WITH LASIX 60MG IVP.
--- NOTE | 2018-02-27 10:48 | NUR ---
MEDS:PT. MEDICATED WITH KDUR 30 MEQ PO PER MD ORDER.
--- NOTE | 2018-02-27 10:50 | NUR ---
EKG DONE WITH RESULTS TO DR. SCOTT . PT STATES SHE JUST TOOK HER TOPROL XL AT APPROX 1015. A-FIB WITH RVR, 128-133
--- NOTE | 2018-02-27 11:20 | NUR ---
Dr. Graham Mejia at bedside Dr. Mejia at bedside for exam. Additional orders received and carried out. RX FOR DIGOXIN 0.125MG ONCE DAILY AT PM DOSE CALLED TO YOUR DRUG STORE PER MD ORDER.
[2018-02-27 11:45] VITALS: BP 127/70
--- NOTE | 2018-02-27 11:45 | NUR ---
Discharge Instructions See e-MAR for any mediations given with this visit. Patient education given on disease process. Patient verbalized understanding. Previous labs reviewed. Patient discharged in stable condition with after care instructions and follow up appointment.PT. TO RTC TUESDAY FOR EVAL.
== END | disposition home or self-care (01) ==
LOC: CHF HDHVI 09:13
PROVIDERS: ATTEND Internal Medicine Cardiovascular Disease
DX: I11.0 Hypertensive heart disease with heart failure (principal); I50.32 Chronic diastolic (congestive) heart failure; I48.0 Paroxysmal atrial fibrillation; E87.6 Hypokalemia; I25.10 Atherosclerotic heart disease of native coronary artery without angina pectoris; I27.21 Secondary pulmonary arterial hypertension; E11.9 Type 2 diabetes mellitus without complications; E03.9 Hypothyroidism, unspecified; F41.9 Anxiety disorder, unspecified; E78.00 Pure hypercholesterolemia, unspecified; J44.9 Chronic obstructive pulmonary disease, unspecified; E78.5 Hyperlipidemia, unspecified; Z79.01 Long term (current) use of anticoagulants; Z79.899 Other long term (current) drug therapy; Z95.0 Presence of cardiac pacemaker; Z90.710 Acquired absence of both cervix and uterus; Z86.718 Personal history of other venous thrombosis and embolism; Z85.6 Personal history of leukemia; Z68.31 Body mass index [BMI] 31.0-31.9, adult
CPT/HCPCS: 36415; 80048; 93005; 96374; G0463; J1940; 96365

== ENCOUNTER 2018-03-03 21:58 | Inpatient (IN) | payer MEDICARE, BC ==
[~2018-03-03] VITALS: Ht 162.6 cm; Wt 81.3 kg
--- NOTE | 2018-03-03 21:15 | NUR ---
Direct Admit Note MOOKIEDONALD admitted to Telemetry/MS unit as a direct admit per MD order. Patient oriented to KAILASH short RN, unit, room, bed, and unit policies regarding patient care and visiting hours. Patient is A&Ox4, no signs or symptoms of distress.Patient now on continuous telemetry monitoring, tele box #33 and telemetry reading on arrival to unit is Afib in the 80s. Patient placed on bedside oxygen 2L via nasal cannula, weighed by bedscale and encouraged to call if they need something. Educated the patient on use of call light and POC. All questions and concerns addressed, patient verbalized understanding. MD notified of patients arrival and admit orders received. Call light is within reach and bed was in the lowest, locked position. Will round hourly and continue to monitor.
[~2018-03-03 21:58] MED LIST changes: -CEPH250C PO; -DICY10CA55 PO; -DIGO0.1262 PO; -DIPH25CA66 PO; -FURO40TA PO; -FUROSEMIDE 20 MG/2 ML VIAL IV ONE; -FUROSEMIDE 20 MG/2 ML VIAL ONE; -FUROSEMIDE 40 MG/4 ML VIAL ONE; -MED20T PO; -POTA1TAB4 PO; -POTASSIUM CHL 10 Meq TABLET PO ONE; -POTASSIUM CHL 20 Meq TABLET PO ONE; -RIVA20TA PO
[2018-03-03] MEDS: ALPRAZolam 0.5 MG TAB PO SCH (22:00)
[2018-03-03 22:15] VITALS: BP 129/67
[2018-03-03 22:30] VITALS: BP 129/67
[2018-03-03] MEDS ORDERED: SODIUM CHLORIDE 0.9% 1,000 ML IV SCH (22:45)
[2018-03-03 23:58] LABS: Basophils # (auto) 0.1 uL; Basophils % (auto) 1.6 % (0.0-2.0); Eosinophils # (auto) 0 uL; Eosinophils % (auto) 0.3 % (0.0-7.0); Hematocrit 33.7 % (36.0-46.0); Hemoglobin 10.7 g/dL (12.2-16.2); Lymphocytes % (auto) 43.1 % (10.0-50.0); Mean Corpuscular Hemoglobin 23.7 pg (28.0-32.0); Mean Corpuscular Hgb Conc. 31.6 g/dL (32.0-36.0); Mean Corpuscular Volume 74.9 fL (80.0-100.0); Monocytes # (auto) 0.5 uL; Monocytes % (auto) 5.2 % (0.0-12.0); Neutrophils # (auto) 4.6 uL; Neutrophils % (auto) 49.8 % (37.0-80.0); Nucleated Red Blood Cells % 0.1 %; Platelet Count (auto) 210 10^3/uL (140-450); Red Cell Distribution Width 16.7 % (11.8-14.3); White Blood Cell 9.2 10^3/uL (4.4-10.8)
[2018-03-04 00:15] LABS: Albumin 3.2 g/dL (3.4-5.0); BUN/Creatinine Ratio 24.5; Calcium 8.5 mg/dL (8.5-10.1); Potassium 3.2 mmol/L (3.5-5.1)
[2018-03-04 00:18] LABS: Bilirubin, Total 0.4 mg/dL (0.2-1.0); Total Protein 7.5 g/dL (6.4-8.2)
[2018-03-04 05:36] VITALS: BP 111/52
--- NOTE | 2018-03-04 06:22 | NUR ---
Unable to obtain stool on shift Unable to obtain stool for stool occult blood per doctor order because patient has had only 1 bowel movement and it was mixed with urine. Will endorse to day shift. Will continue to monitor.
[2018-03-04] MEDS: LEVOTHYROXINE SODIUM 25 MCG TAB PO SCH (06:33)
[2018-03-04 08:41] VITALS: BP 122/59
[2018-03-04] MEDS: ALPRAZolam 0.5 MG TAB PO SCH ×2 (11:18→21:48)
[2018-03-04] MEDS: METOPROLOL TARTRATE 50 MG TAB PO SCH ×2 (11:18→21:47)
[2018-03-04] MEDS: DIGOXIN 0.125 MG TAB PO SCH ×3 (11:18→20:33)
[2018-03-04] MEDS ORDERED: POTASSIUM CHL 20 Meq TABLET PO ONE (11:30)
[2018-03-04 12:55] VITALS: BP 136/59
[2018-03-04 17:00] VITALS: BP 118/70
--- NOTE | 2018-03-04 18:00 | NUR ---
Pt alert and oriented, showing no change from initial assessment. No c/o pain or discomfort. V.S.S., resp even, unlabored. Marked lower extremity edema noted. Lasix IV infusion initiated at 10cc/hr.
--- NOTE | 2018-03-04 19:00 | NUR ---
Opening shift Note Assumed care of the patient from the day shift RN. The patient is A&Ox4, no signs or symptoms of distress. Educated the patient on POC and patient verbalized understanding. The patient's call light is within reach and bed is in the lowest, locked position. Will round hourly and continue to monitor.
[2018-03-04 20:00] VITALS: BP 126/55
--- NOTE | 2018-03-04 20:11 | NUR ---
Paged Dr. Stevenson Paged doctor Graham regarding patient complaints of pain before and during urination. The patient states it began today. Will wait for orders and continue to monitor.
--- NOTE | 2018-03-04 20:25 | NUR ---
Dr. Stevenson Returned Page Dr. Stevenson requested UA and Levaquin 500mg IV once a day. Will carry out out physician orders and continue to monitor.
[2018-03-04] MEDS: POTASSIUM EFFERVESENT TAB 25 MEQ GT SCH (21:48)
[2018-03-04 22:00] VITALS: BP 126/55
[2018-03-04] MEDS ORDERED: LEVOFLOXACIN 500MG 100 ML IV SCH (23:00)
[2018-03-05] VITALS (7 sets, daily range): BP systolic 107–126; BP diastolic 47–67
--- NOTE | 2018-03-05 00:13 | NUR ---
Levaquin started at 0600. The patient has not urinated yet, as she is sleeping. The UA must be done before the patient receives antibiotics.
[2018-03-05 05:40] LABS: Urine Bacteria NONE SEEN /hpf (None Seen); Urine Blood Negative /uL (Negative); Urine Specific Gravity 1.006 (1.001-1.035); Urine WBC <1 /hpf (0 - 5)
[2018-03-05] MEDS: LEVOFLOXACIN 500MG 100 ML IV SCH (05:40)
[2018-03-05 05:55] LABS: Hemoglobin 9.4 g/dL (12.2-16.2)
[2018-03-05 05:59] LABS: Hematocrit 29.5 % (36.0-46.0); Mean Corpuscular Hemoglobin 23.6 pg (28.0-32.0); Mean Corpuscular Hgb Conc. 31.9 g/dL (32.0-36.0); Platelet Count (auto) 232 10^3/uL (140-450); Red Blood Cells 3.98 10^6/uL (4.0-5.20); Red Cell Distribution Width 16.5 % (11.8-14.3); White Blood Cell 3.6 10^3/uL (4.4-10.8)
[2018-03-05 06:00] LABS: Band Neutrophils % (manual) 0; Basophils % (manual) 0 (0.0-2.0); Blast Cells 0; Eosinophils % (manual) 0 (0-7); Metamyelocytes % 0; Myelocytes % 0; Promyelocytes % 0; Reactive Lymphocytes 0
[2018-03-05 06:13] LABS: Calcium 8.5 mg/dL (8.5-10.1); Potassium 3.5 mmol/L (3.5-5.1)
[2018-03-05 06:19] LABS: Albumin 3.1 g/dL (3.4-5.0); Bilirubin, Total 0.5 mg/dL (0.2-1.0); Total Protein 7.3 g/dL (6.4-8.2)
[2018-03-05] MEDS: LEVOTHYROXINE SODIUM 25 MCG TAB PO SCH (06:34)
[2018-03-05 06:38] LABS: Lymphocytes % (manual) 60 (10.0-50.0); Monocytes % (manual) 9 (0-12)
[2018-03-05] MEDS: POTASSIUM EFFERVESENT TAB 25 MEQ GT SCH ×2 (11:06→22:33)
[2018-03-05] MEDS: METOPROLOL TARTRATE 50 MG TAB PO SCH ×2 (11:07→22:34)
[2018-03-05] MEDS: ALPRAZolam 0.5 MG TAB PO SCH ×2 (11:07→22:34)
[2018-03-05] MEDS: FUROSEMIDE INJECTION 250 MG in D5W 5% 225 ML IV SCH ×2 (11:09→11:30)
[2018-03-05] MEDS ORDERED: PATIENTS OWN MEDICATION (EPOGEN 10,000 UNITS) SUBCUT ONE (16:00)
--- NOTE | 2018-03-05 19:00 | NUR ---
Opening Shift Note Assumed care of the patient from the day shift RN. The patient is A&Ox4, no signs or symptoms of distress. Family at bedside. Educated the patient on POC and patient verbalized understanding. The patient's call light is within reach and bed is in the lowest, locked position. Will round hourly and continue to monitor.
[2018-03-05] MEDS: DIGOXIN 0.125 MG TAB PO SCH (22:20)
[2018-03-06 05:00] VITALS: BP 121/71
[2018-03-06 05:30] LABS: Mean Corpuscular Hemoglobin 24.2 pg (28.0-32.0); Mean Corpuscular Hgb Conc. 32.5 g/dL (32.0-36.0); White Blood Cell 4.1 10^3/uL (4.4-10.8)
[2018-03-06 05:32] LABS: Hematocrit 29.1 % (36.0-46.0); Hemoglobin 9.4 g/dL (12.2-16.2); Mean Corpuscular Volume 74.6 fL (80.0-100.0); Platelet Count (auto) 207 10^3/uL (140-450); Red Cell Distribution Width 16.9 % (11.8-14.3)
[2018-03-06] MEDS: LEVOFLOXACIN 500MG 100 ML IV SCH ×2 (06:00→06:34)
[2018-03-06] MEDS: LEVOTHYROXINE SODIUM 25 MCG TAB PO SCH (06:41)
[2018-03-06 06:47] LABS: Basophils % (manual) 0 (0.0-2.0); Blast Cells 0; Eosinophils % (manual) 0 (0-7); Myelocytes % 0; Promyelocytes % 0; Reactive Lymphocytes 0
--- NOTE | 2018-03-06 07:00 | NUR ---
Opening Shift Note Assumed care of patient, awake and alert. No S/S of distress/SOB or pain. Instructed on POC and to call for assist PRN, will continue to monitor for changes Q1hr and PRN.
[2018-03-06 07:43] LABS: Band Neutrophils % (manual) 1; Lymphocytes % (manual) 67 (10.0-50.0); Metamyelocytes % 1; Monocytes % (manual) 13 (0-12)
[2018-03-06 07:57] VITALS: BP 114/47
[2018-03-06 09:02] VITALS: BP 115/55
[2018-03-06] MEDS: ALPRAZolam 0.5 MG TAB PO SCH ×2 (10:00→23:54)
[2018-03-06] MEDS: POTASSIUM EFFERVESENT TAB 25 MEQ GT SCH ×2 (10:31→21:24)
[2018-03-06] MEDS: METOPROLOL TARTRATE 50 MG TAB PO SCH ×2 (10:32→21:26)
[2018-03-06] MEDS: FUROSEMIDE INJECTION 250 MG in D5W 5% 225 ML IV SCH (11:55)
[2018-03-06 13:00] VITALS: BP 144/87
[2018-03-06 17:00] VITALS: BP 105/74
--- NOTE | 2018-03-06 19:45 | NUR ---
PM ASSESSMENT PT A/OX4, AFEBRILE. NO C/O PAIN. NO SOB OR DISTRESS, PT ON 2LNC. IV SITE ON RT HAND 22G, INTACT AND PATENT, INFUSING LASIX, PT TOLERATING WELL. POC DISCUSSED, PT STATED UNDERSTANDING. SAFETY PRECAUTIONS IN PLACE. WILL CONTINUE TO MONITOR.
[2018-03-06] MEDS: DIGOXIN 0.125 MG TAB PO SCH (21:26)
[2018-03-06 21:51] VITALS: BP 127/68
[2018-03-07 05:32] VITALS: BP 113/50
[2018-03-07] MEDS: LEVOTHYROXINE SODIUM 25 MCG TAB PO SCH (06:33)
[2018-03-07] MEDS: LEVOFLOXACIN 500MG 100 ML IV SCH (06:33)
[2018-03-07 08:57] VITALS: BP 96/57
[2018-03-07] MEDS: MAGNESIUM OXIDE 400 MG TAB PO SCH (09:50)
[2018-03-07] MEDS: POTASSIUM EFFERVESENT TAB 25 MEQ GT SCH ×2 (09:50→21:40)
[2018-03-07] MEDS: ALPRAZolam 0.5 MG TAB PO SCH ×2 (09:51→23:37)
[2018-03-07] MEDS: METOPROLOL TARTRATE 50 MG TAB PO SCH ×2 (09:55→21:40)
[2018-03-07] MEDS: FUROSEMIDE INJECTION 250 MG in D5W 5% 225 ML IV SCH (11:30)
--- NOTE | 2018-03-07 11:37 | NUR ---
Nutrition Assessment Notes please see attached link for complete assessment Est. Needs based on AdBW (68 kg): 8081-7909 kcal (23-25 kcal/kgAdBW), 68-74 gms pro (1.0-1.1 gms/kgAdBW). Will continue to monitor pertinent labs and reassess nutrient need prn Addendum: 03/07/18 at [address] Amended: Links added.
[2018-03-07 13:00] VITALS: BP 104/54
[2018-03-07 17:14] VITALS: BP 116/49
--- NOTE | 2018-03-07 19:30 | NUR ---
ASSUMED CARE, PT. AWAKE, RELATIVE AT BEDSIDE, NO C/O PAIN, NO SOB.
[2018-03-07] MEDS: DIGOXIN 0.125 MG TAB PO SCH (21:40)
[2018-03-07 22:00] VITALS: BP 118/62
[2018-03-08 05:26] VITALS: BP 118/58
[2018-03-08] MEDS: LEVOFLOXACIN 500MG 100 ML IV SCH (05:31)
[2018-03-08] MEDS: LEVOTHYROXINE SODIUM 25 MCG TAB PO SCH (06:07)
[2018-03-08 09:00] VITALS: BP 100/55
[2018-03-08] MEDS: ALPRAZolam 0.5 MG TAB PO SCH ×2 (09:36→09:45)
[2018-03-08] MEDS: POTASSIUM EFFERVESENT TAB 25 MEQ GT SCH ×2 (09:37→21:47)
[2018-03-08] MEDS: MAGNESIUM OXIDE 400 MG TAB PO SCH (09:37)
[2018-03-08] MEDS: METOPROLOL TARTRATE 50 MG TAB PO SCH ×2 (09:37→21:49)
[2018-03-08] MEDS: FUROSEMIDE INJECTION 250 MG in D5W 5% 225 ML IV SCH (11:02)
--- NOTE | 2018-03-08 12:37 | NUR ---
NOTIFIED DR SCOTT OF PT'S REQUEST FOR LAXATIVE. WAITING FOR REPLY.
[2018-03-08 13:00] VITALS: BP 113/59
--- NOTE | 2018-03-08 13:30 | NUR ---
NEW ORDERS RECEIVED FROM DR SCOTT
[2018-03-08] MEDS ORDERED: FUROSEMIDE IV SCH (14:20)
[2018-03-08] MEDS ORDERED: DEXTROSE IV SCH (14:20)
--- NOTE | 2018-03-08 14:35 | NUR ---
DR CSOTT AT BEDSIDE NEW ORDERS RECEIVED AND CARRIED OUT.
[2018-03-08] MEDS ORDERED: MAGNESIUM CITRATE SOLUTION 300 ML BTL PO ONE (14:45)
[2018-03-08 14:48] LABS: Basophils # (auto) 0 uL; Eosinophils # (auto) 0 uL; Hemoglobin 9.4 g/dL (12.2-16.2); Lymphocytes # (auto) 1.4 uL; Monocytes # (auto) 0.4 uL; Monocytes % (auto) 11.6 % (0.0-12.0); Neutrophils # (auto) 1.3 uL; Red Cell Distribution Width 17.2 % (11.8-14.3); White Blood Cell 3.1 10^3/uL (4.4-10.8)
[2018-03-08 14:50] LABS: Basophils % (auto) 0.2 % (0.0-2.0); Eosinophils % (auto) 0.2 % (0.0-7.0); Hematocrit 28.4 % (36.0-46.0); Lymphocytes % (auto) 45.7 % (10.0-50.0); Mean Corpuscular Hemoglobin 24.5 pg (28.0-32.0); Mean Corpuscular Volume 74.1 fL (80.0-100.0); Neutrophils % (auto) 42.3 % (37.0-80.0); Nucleated Red Blood Cells % 0.3 %; Platelet Count (auto) 192 10^3/uL (140-450); Red Blood Cells 3.83 10^6/uL (4.0-5.20)
[2018-03-08 15:02] LABS: Albumin 2.9 g/dL (3.4-5.0); BUN/Creatinine Ratio 20.2; Calcium 8.4 mg/dL (8.5-10.1); Potassium 3.2 mmol/L (3.5-5.1)
[2018-03-08 15:05] LABS: Bilirubin, Total 0.4 mg/dL (0.2-1.0)
[2018-03-08] MEDS: FUROSEMIDE INJECTION 500 MG in D5W 5% 450 ML IV SCH (16:34)
[2018-03-08 17:00] VITALS: BP 108/51
[2018-03-08 21:27] VITALS: BP 122/61
[2018-03-08] MEDS: DIGOXIN 0.125 MG TAB PO SCH (21:47)
[2018-03-08] MEDS: NYSTATIN-TRIAMCINOLONE TOPICAL CRE 15GM TOP SCH (21:50)
[2018-03-09 05:11] VITALS: BP 101/50
[2018-03-09] MEDS: LEVOFLOXACIN 500MG 100 ML IV SCH (05:49)
--- NOTE | 2018-03-09 06:14 | NUR ---
IV removal IV DC'd with clean sterile technique, catheter fully intact. Pressure dressing applied to site. Patient tolerated well.
--- NOTE | 2018-03-09 06:20 | NUR ---
IV insertion IV access obtained, via clean sterile technique by inserting 22 gauge catheter at RFA after 1 attempt. IV secured properly. Flushes easily. No trauma to site. Patient tolerated well.
[2018-03-09] MEDS: LEVOTHYROXINE SODIUM 25 MCG TAB PO SCH (06:52)
[2018-03-09] MEDS: ONDANSETRON ODT 4 MG TAB PO PRN (08:22)
[2018-03-09] MEDS: ALPRAZolam 0.5 MG TAB PO SCH ×2 (09:29→22:00)
[2018-03-09] MEDS: NYSTATIN-TRIAMCINOLONE TOPICAL CRE 15GM TOP SCH ×2 (09:30→22:05)
[2018-03-09] MEDS: FUROSEMIDE INJECTION 500 MG in D5W 5% 450 ML IV SCH (09:30)
[2018-03-09] MEDS: MAGNESIUM OXIDE 400 MG TAB PO SCH (09:31)
[2018-03-09] MEDS: METOPROLOL TARTRATE 50 MG TAB PO SCH ×2 (09:31→22:04)
[2018-03-09] MEDS: POTASSIUM EFFERVESENT TAB 25 MEQ GT SCH ×2 (09:32→22:05)
[2018-03-09 09:37] VITALS: BP 108/52
[2018-03-09 13:00] VITALS: BP 101/53
--- NOTE | 2018-03-09 14:06 | NUR ---
RE: Xanax Patient states "I feel like the xanax dose is too much. I feel really tired." Will notify MD during patient rounds.
[2018-03-09 15:05] LABS: BUN/Creatinine Ratio 17.8; Calcium 8.3 mg/dL (8.5-10.1); Potassium 3.7 mmol/L (3.5-5.1)
[2018-03-09] MEDS ORDERED: EPOETIN ALFA 10,000 UNIT/1 ML VIAL SC ONE (16:00)
--- NOTE | 2018-03-09 16:15 | NUR ---
Spoke with MD Spoke with Dr. Stevenson regarding POC. Ordered to continue to monitor.
--- NOTE | 2018-03-09 16:56 | NUR ---
Called pharmacy RE: Epogen Medication not available at this time. Called pharmacy to notify. Medication to be sent to unit.
[2018-03-09 17:00] VITALS: BP 101/52
--- NOTE | 2018-03-09 18:12 | NUR ---
Patient ambulated around nursing unit with spouse at patient's side.
--- NOTE | 2018-03-09 18:42 | NUR ---
End of shift patient resting in bed with even and unlabored respirations on 2LPM NC. patient denies CP, SOB, and/or generalized pain at this time. Fall precautions in place with call light within reach. Lasix IV being administered per MD's orders. IV site has no s/s of phlebitis and/or infiltration noted at this time. Will endorse care to MOLLY Brooks.
[2018-03-09 21:58] VITALS: BP 112/60
[2018-03-09] MEDS: DIGOXIN 0.125 MG TAB PO SCH (22:03)
[2018-03-10 05:19] VITALS: BP 126/51
[2018-03-10] MEDS: LEVOFLOXACIN 500MG 100 ML IV SCH (05:36)
[2018-03-10] MEDS: diphenhdrAMINE HCL 25 MG CAP PO PRN (06:31)
[2018-03-10] MEDS: LEVOTHYROXINE SODIUM 25 MCG TAB PO SCH (06:46)
[2018-03-10 07:10] LABS: % Iron Saturation 8.4 % (15-50)
--- NOTE | 2018-03-10 07:35 | NUR ---
Patient sitting in bed, awake, oriented x4. No acute distress noted.
[2018-03-10] MEDS: ONDANSETRON ODT 4 MG TAB PO PRN (08:45)
--- NOTE | 2018-03-10 08:45 | NUR ---
Patient stated she's nauseous. Zofran PO given for nausea as ordered.
[2018-03-10 09:27] VITALS: BP 113/66
--- NOTE | 2018-03-10 09:50 | NUR ---
Patient is anxious, crying. On Xanax PO as ordered.
[2018-03-10] MEDS: POTASSIUM EFFERVESENT TAB 25 MEQ GT SCH ×2 (09:51→21:46)
[2018-03-10] MEDS: ALPRAZolam 0.5 MG TAB PO SCH ×2 (09:52→22:00)
[2018-03-10] MEDS: NYSTATIN-TRIAMCINOLONE TOPICAL CRE 15GM TOP SCH ×2 (09:53→21:48)
[2018-03-10] MEDS: METOPROLOL TARTRATE 50 MG TAB PO SCH ×2 (09:53→21:48)
[2018-03-10] MEDS: MAGNESIUM OXIDE 400 MG TAB PO SCH (09:53)
[2018-03-10 12:54] VITALS: BP 116/63
[2018-03-10] MEDS: FUROSEMIDE INJECTION 500 MG in D5W 5% 450 ML IV SCH (13:38)
--- NOTE | 2018-03-10 14:00 | NUR ---
Nutrition Follow-up Notes Wt.: 86.7 kg as of yesterday. Pt's asleep, no immediate family member at bedside during rounds this morning. Noted pt's anxious earlier, per nursing, currently on 2 gms Na diet with adequate PO intake aeb 90% ave. consumed meals (x6) in last 2.5 days. Est. Needs based on AdBW (68 kg): 1357-2088 kcal (23-25 kcal/kgAdBW), 68-74 gms pro (1.0-1.1 gms/kgAdBW). Will continue to monitor pertinent labs and reassess nutrient need prn Labs: Gluc 120 H, Na 132 L, BUN 88 H, CO2 36 H, BUN 19 H, Cr 1.07 H, Ca 8.3 L, Fe 37 L, % Sat 8.4 L; Alb 2.9 L Skin: Brennen scale 21, low risk, skin intact per holistic health practitioner. GI: Pt had 2x BM yesterday per holistic health practitioner. PES: Altered nutrition related lab values r/t current/chronic medical condition aeb elev BUN, mild hypoalb Obesity r/t food intake more than body requirement aeb 159% IBW, BMI 32.8 kg/m2 and increased body adiposity Will continue to monitor PO intake, skin status, pertinent labs and weight trend. F/u in 3 to 5 days. Rec.: 1.) Continue close supervision during meals. 2.) If Albumin level continues trending down with improved renal labs, consider Prostat 1 pkt BID. 3.) Refer pt to RD for further nutrition education and weight monitoring upon discharge. 4.) Continue current plan of care.
--- NOTE | 2018-03-10 16:30 | NUR ---
Dr. Griffin at bedside. ordered patient okay to go home today. Daughter at bedside. Addendum: 03/10/18 at 1649 by Gabbie Rain RN WRONG ENTRY
--- NOTE | 2018-03-10 16:35 | NUR ---
Called Dr. Wiseman. made aware that as per Dr. Griffin, patient is okay to go home. Dr. Wiseman ordered patient okay to go home as per Cardiology, patient should not take Metformin for three days starting today to Mar 12; resume Metformin as ordered on 2018. Addendum: 03/10/18 at 1649 by Gabbie Rain RN WRONG ENTRY
--- NOTE | 2018-03-10 16:37 | NUR ---
Dr. Griffin made aware that Dr. Wiseman ordered patient okay to go home today, patient should not take Metformin for three days starting today to ; resume Metformin on [address] Griffin said he will put in discharge orders and will write prescription. Addendum: 03/10/18 at 1649 by Gabbie Rain RN WRONG ENTRY
--- NOTE | 2018-03-10 16:40 | NUR ---
Patient sitting on bed. Patient stated Dr. Stevenson came over to see her, ordered stool softener, suppository.
--- NOTE | 2018-03-10 16:40 | NUR ---
Family member at bedside.
--- NOTE | 2018-03-10 17:06 | NUR ---
Patient walking on the hallway with family member.
--- NOTE | 2018-03-10 18:00 | NUR ---
Patient sitting on bed. No acute distress noted.
[2018-03-10] MEDS: DOCUSATE SOD 100 MG CAP PO SCH (21:47)
[2018-03-10] MEDS: HYDROCORTISONE ACET 25 MG RECTAL SUPP PR SCH (21:48)
[2018-03-10] MEDS: DIGOXIN 0.125 MG TAB PO SCH (21:48)
[2018-03-10 21:59] VITALS: BP 119/56
[2018-03-11 05:10] VITALS: BP 107/66
[2018-03-11] MEDS: diphenhdrAMINE HCL 25 MG CAP PO PRN (05:35)
[2018-03-11] MEDS: LEVOFLOXACIN 500MG 100 ML IV SCH (05:35)
[2018-03-11] MEDS: LEVOTHYROXINE SODIUM 25 MCG TAB PO SCH (06:57)
--- NOTE | 2018-03-11 07:29 | NUR ---
Patient is resting in bed, in no distress, no pain. Endorsed care to Gabbie BARNES.
--- NOTE | 2018-03-11 07:40 | NUR ---
Patient walking in the room. No acute distress noted.
[2018-03-11 08:30] VITALS: BP_SYST 109; BP_SYST 117; BP_DIAS 53; BP_DIAS 55
[2018-03-11] MEDS: POTASSIUM EFFERVESENT TAB 25 MEQ GT SCH ×2 (10:19→21:59)
[2018-03-11] MEDS: DOCUSATE SOD 100 MG CAP PO SCH ×2 (10:20→22:00)
[2018-03-11] MEDS: METOPROLOL TARTRATE 50 MG TAB PO SCH ×2 (10:20→21:57)
[2018-03-11] MEDS: ALPRAZolam 0.5 MG TAB PO SCH ×2 (10:20→23:02)
[2018-03-11] MEDS: HYDROCORTISONE ACET 25 MG RECTAL SUPP PR SCH ×2 (10:21→22:00)
[2018-03-11] MEDS: NYSTATIN-TRIAMCINOLONE TOPICAL CRE 15GM TOP SCH ×2 (10:21→22:04)
[2018-03-11] MEDS: MAGNESIUM OXIDE 400 MG TAB PO SCH (10:21)
--- NOTE | 2018-03-11 10:26 | NUR ---
Anucort Suppository applied OK. Explained to the patient to stay laying on her side for at least 5 to 10 minutes as tolerated, when she has the urgency to have bowel movement, use the bedside commode or go to the bathroom.
[2018-03-11 13:00] VITALS: BP 109/53
--- NOTE | 2018-03-11 15:00 | NUR ---
Called Pharmacy to follow up on the Lasix drip as ordered. Pharmacy to send the medication.
[2018-03-11] MEDS: FUROSEMIDE INJECTION 500 MG in D5W 5% 450 ML IV SCH (15:20)
[2018-03-11 17:32] VITALS: BP 108/51
[2018-03-11] MEDS: ONDANSETRON ODT 4 MG TAB PO PRN (18:23)
--- NOTE | 2018-03-11 18:23 | NUR ---
Patient stated she's nauseous, refused dinner. Zofran PO given as ordered.
--- NOTE | 2018-03-11 18:50 | NUR ---
Informed Dr. Stevenson that patient complained that Colace, Hydrocortisone suppository, Mag-Ox did not relieve her constipation. Patient stated that she had Magnesium Citrate liquid before but caused stomach cramps. Patient wants another medication for constipation. Waiting for MD to call back.
--- NOTE | 2018-03-11 19:10 | NUR ---
Opening Note Received change of shift report from day shift RN. Patient is awake, alert and oriented x4. at bedside. No signs or symptoms of distress or shortness of breath at this time. Patient denies pain at this time. Patient states abdominal discomfort and is requesting medications to help her have a bowel movement. Dr. Stevenson was paged by day shift RN for new medication orders. Awaiting call back. Reviewed plan of care with patient, patient verbalized understanding. Bed in low and locked position, call light within reach. Will continue to monitor Q1 hour and PRN.
--- NOTE | 2018-03-11 20:50 | NUR ---
Dr. Stevenson returned call New order for a one time dose of lactulose was ordered to help patient have a bowel movement. Will be implemented as ordered. Will continue to monitor Q1 hour and PRN.
[2018-03-11] MEDS ORDERED: LACTULOSE 20Gm/30ML SOLN PO ONE (21:00)
[2018-03-11] MEDS: DIGOXIN 0.125 MG TAB PO SCH (21:58)
[2018-03-11 22:00] VITALS: BP 127/64
--- NOTE | 2018-03-12 00:05 | NUR ---
Patient states she is having abdominal pain and cramping, with moderate amount of flatulence. Will continue to monitor Q1 hour and PRN.
--- NOTE | 2018-03-12 01:08 | NUR ---
Patient had a large, soft, brown bowel movement. Patient states abdominal pain and cramping "aren't as bad now." Patient used the bedside commode, states she "felt too weak to walk to the restroom." Will continue to monitor Q1 hour and PRN
--- NOTE | 2018-03-12 02:34 | NUR ---
Patient resting comfortably in bed with eyes closed. Will continue to monitor Q1 hour and PRN.
[2018-03-12 05:00] VITALS: BP 126/64
[2018-03-12] MEDS: LEVOFLOXACIN 500MG 100 ML IV SCH (05:34)
[2018-03-12] MEDS: diphenhdrAMINE HCL 25 MG CAP PO PRN (05:40)
[2018-03-12] MEDS: LEVOTHYROXINE SODIUM 25 MCG TAB PO SCH (06:46)
--- NOTE | 2018-03-12 07:20 | NUR ---
Closing Note Report given to day shift RN. Patient is comfortably resting in bed, awake alert and oriented x4. No signs or symptoms of distress at this time.
[2018-03-12 08:30] VITALS: BP 108/55
[2018-03-12] MEDS: ONDANSETRON ODT 4 MG TAB PO PRN (08:47)
--- NOTE | 2018-03-12 08:47 | NUR ---
Patient stated she's nauseous. Zofran PO given as ordered.
--- NOTE | 2018-03-12 09:05 | NUR ---
Cereal and banana requested to Dietary via fax as requested by the patient. Waiting for Dietary to bring the food.
[2018-03-12] MEDS: POTASSIUM EFFERVESENT TAB 25 MEQ GT SCH ×2 (09:40→21:57)
[2018-03-12] MEDS: MAGNESIUM OXIDE 400 MG TAB PO SCH (09:40)
[2018-03-12] MEDS: ALPRAZolam 0.5 MG TAB PO SCH ×2 (09:41→21:56)
[2018-03-12] MEDS: NYSTATIN-TRIAMCINOLONE TOPICAL CRE 15GM TOP SCH ×2 (09:41→21:56)
[2018-03-12] MEDS: HYDROCORTISONE ACET 25 MG RECTAL SUPP PR SCH ×2 (09:41→21:56)
[2018-03-12] MEDS: METOPROLOL TARTRATE 50 MG TAB PO SCH ×2 (09:41→21:57)
[2018-03-12] MEDS: DOCUSATE SOD 100 MG CAP PO SCH ×2 (09:42→21:56)
[2018-03-12 12:54] VITALS: BP 95/54
--- NOTE | 2018-03-12 15:35 | NUR ---
BP = 101/51, Pulse Rate = 81, O2 Sat = 99% on O2 at 2LPM. No acute distress noted.
[2018-03-12] MEDS: FUROSEMIDE INJECTION 500 MG in D5W 5% 450 ML IV SCH (15:38)
[2018-03-12 16:41] VITALS: BP 103/45
--- NOTE | 2018-03-12 17:20 | NUR ---
Patient ambulating to the bathroom. Family member at bedside.
--- NOTE | 2018-03-12 17:30 | NUR ---
Patient back to room from walking on the hallway. Family member at bedside.
--- NOTE | 2018-03-12 19:15 | NUR ---
Opening Note Received change of shift report from day shift RN. Patient is awake, alert and oriented x4. at bedside. No signs or symptoms of distress or shortness of breath at this time. Patient denies pain at this time. Reviewed plan of care with patient, patient verbalized understanding. Bed in low and locked position, call light within reach. Will continue to monitor Q1 hour and PRN.
--- NOTE | 2018-03-12 21:50 | NUR ---
Patient refused medications Patient refused metoprolol, states she is "worried her blood pressure will go too low" Blood pressure at this time is 122/44 and heart rate is 86. Patient also refused potassium tablets, states she "can't drink any more of this medicine, it's making my stomach hurt" Educated the patient of the importance of these two medications, patient continues to refuse. Will continue to monitor Q1 hour and PRN.
[2018-03-12] MEDS: DIGOXIN 0.125 MG TAB PO SCH (21:56)
[2018-03-12 22:00] VITALS: BP 122/44
--- NOTE | 2018-03-13 00:37 | NUR ---
Patient resting comfortably in bed with eyes closed. Bed in low and locked position, call light within reach. Will continue to monitor Q1 hour and PRN.
[2018-03-13 05:00] VITALS: BP 117/57
[2018-03-13] MEDS: LEVOFLOXACIN 500MG 100 ML IV SCH (05:48)
[2018-03-13] MEDS: diphenhdrAMINE HCL 25 MG CAP PO PRN (05:48)
[2018-03-13] MEDS: LEVOTHYROXINE SODIUM 25 MCG TAB PO SCH (06:49)
--- NOTE | 2018-03-13 07:20 | NUR ---
Closing Note Report given to day shift RN. Patient is awake, alert and oriented x4. No signs or symptoms of distress noted at this time.
[2018-03-13 09:00] VITALS: BP 103/66
[2018-03-13] MEDS: DOCUSATE SOD 100 MG CAP PO SCH (09:28)
[2018-03-13] MEDS: ALPRAZolam 0.5 MG TAB PO SCH (09:28)
[2018-03-13] MEDS: MAGNESIUM OXIDE 400 MG TAB PO SCH (09:28)
[2018-03-13] MEDS: METOPROLOL TARTRATE 50 MG TAB PO SCH (09:29)
[2018-03-13] MEDS: HYDROCORTISONE ACET 25 MG RECTAL SUPP PR SCH (09:29)
[2018-03-13] MEDS: NYSTATIN-TRIAMCINOLONE TOPICAL CRE 15GM TOP SCH (09:30)
[2018-03-13] MEDS: POTASSIUM EFFERVESENT TAB 25 MEQ GT SCH (10:00)
--- NOTE | 2018-03-13 10:03 | NUR ---
dr carrasco paged regarding patient being unable to "stomach" her potassium drink. request to change to pill form
--- NOTE | 2018-03-13 11:23 | NUR ---
Nutrition Follow-up Notes Wt.: 81.3 kg Pt's asleep, no immediate family member at bedside during rounds this morning. per records pt with melanic stool, GI bleed. pt off anticoagulants. pt is currently on 2 gms Na diet with adequate PO of > 75% x 6 per RN doc Est. Needs based on AdBW (68 kg): 3129-8458 kcal (23-25 kcal/kgAdBW), 68-74 gms pro (1.0-1.1 gms/kgAdBW). Will continue to monitor pertinent labs and reassess nutrient need prn Labs: ALB 2.9 L, BUN 19 H, CREAT 1.07 H, GLU 120 H, CA 8.3 L. Skin: Brennen scale 20, low risk, skin intact per water chemist. GI: Pt had 1 BM on 03/10 per water chemist. PES: Altered nutrition related lab values r/t current/chronic medical condition aeb elev BUN, mild hypoalb Obesity r/t food intake more than body requirement aeb 159% IBW, BMI 32.8 kg/m2 and increased body adiposity Will continue to monitor PO intake, skin status, pertinent labs and weight trend. F/u in 3 to 5 days. Rec.: 1.) Continue close supervision during meals. 2.) If Albumin level continues trending down with improved renal labs, consider Prostat 1 pkt BID. 3.) Refer pt to RD for further nutrition education and weight monitoring upon discharge. 4.) Continue current plan of care.
[2018-03-13 13:21] VITALS: BP 108/56
[2018-03-13 17:07] VITALS: BP 98/48
[2018-03-13 17:13] VITALS: BP 94/49
[2018-03-13 17:26] VITALS: BP 94/49
== END 2018-03-13 18:25 | disposition home or self-care (01) | DRG 377 ==
LOC: TELE-CENTR 21:58
PROVIDERS: ADMIT Internal Medicine Cardiovascular Disease; ATTEND Internal Medicine Cardiovascular Disease
DX: K92.2 Gastrointestinal hemorrhage, unspecified (principal); I50.31 Acute diastolic (congestive) heart failure; C91.10 Chronic lymphocytic leukemia of B-cell type not having achieved remission; E87.1 Hypo-osmolality and hyponatremia; D61.818 Other pancytopenia; D68.59 Other primary thrombophilia; I27.81 Cor pulmonale (chronic); I48.91 Unspecified atrial fibrillation; E87.6 Hypokalemia; I50.811 Acute right heart failure; K25.9 Gastric ulcer, unspecified as acute or chronic, without hemorrhage or perforation; K29.70 Gastritis, unspecified, without bleeding; Z86.718 Personal history of other venous thrombosis and embolism
CPT/HCPCS: 36415; 36600; 80048; 80053; 81001; 82270; 82805; 83540; 83550; 83880; 85007; 85025; 85027; 86850; 86900; 86901; 86920; 87086; 93005; 96374; G0378; G0463; J0885; J1956; J7060; Q0162

== ENCOUNTER → 2018-03-16 | Outpatient (CLI) | payer MEDICARE, BC ==
[~2018-03-16] MED LIST changes: -WARF2TAB49 PO
[2018-03-16 11:14] VITALS: BP 117/57
[2018-03-16 12:05] VITALS: BP 110/53
[2018-03-16 15:35] LABS: Basophils # (auto) 0 uL; Eosinophils # (auto) 0 uL; Hemoglobin 9.9 g/dL (12.2-16.2); Monocytes # (auto) 0.4 uL; White Blood Cell 3.4 10^3/uL (4.4-10.8)
[2018-03-16 15:36] LABS: Basophils % (auto) 0.3 % (0.0-2.0); Hematocrit 30.5 % (36.0-46.0); Lymphocytes # (auto) 1.3 uL; Lymphocytes % (auto) 38.2 % (10.0-50.0); Mean Corpuscular Hemoglobin 24.3 pg (28.0-32.0); Mean Corpuscular Hgb Conc. 32.5 g/dL (32.0-36.0); Mean Corpuscular Volume 74.7 fL (80.0-100.0); Neutrophils # (auto) 1.7 uL; Neutrophils % (auto) 50.5 % (37.0-80.0); Nucleated Red Blood Cells % 0.3 %; Platelet Count (auto) 305 10^3/uL (140-450); Red Blood Cells 4.08 10^6/uL (4.0-5.20); Red Cell Distribution Width 18.7 % (11.8-14.3)
[2018-03-16 15:39] LABS: Anion Gap 4 (5-15); BUN/Creatinine Ratio 18.5; Blood Urea Nitrogen 20 mg/dL (7-18); Calcium 8.5 mg/dL (8.5-10.1); Carbon Dioxide 39 mmol/L (21-32); Chloride 85 mmol/L (98-107); GFR Non-African American 53 mL/min; Glucose 111 mg/dL (74-106); Potassium 3.2 mmol/L (3.5-5.1); Sodium 128 mmol/L (136-145)
[2018-03-16 15:47] LABS: GFR African American > 60 mL/min
== END | disposition home or self-care (01) ==
LOC: CHF HDHVI 11:19
PROVIDERS: ATTEND Internal Medicine Cardiovascular Disease
DX: I11.0 Hypertensive heart disease with heart failure (principal); I50.9 Heart failure, unspecified; D64.9 Anemia, unspecified; C95.90 Leukemia, unspecified not having achieved remission; R60.0 Localized edema
CPT/HCPCS: 36415; 80048; 85025; G0463

== ENCOUNTER → 2018-03-23 | Outpatient (CLI) | payer MEDICARE, BC ==
[2018-03-23 16:47] LABS: Blood Urea Nitrogen 26 mg/dL (7-18); GFR Non-African American 56 mL/min; Potassium 3.6 mmol/L (3.5-5.1)
[2018-03-23 16:52] LABS: GFR African American > 60 mL/min
== END | disposition home or self-care (01) ==
LOC: CHF HDHVI 14:44
PROVIDERS: ATTEND Internal Medicine Cardiovascular Disease
DX: E87.5 Hyperkalemia (principal); R94.4 Abnormal results of kidney function studies
CPT/HCPCS: 36415; 82565; 84132; 84520

== ENCOUNTER → 2018-03-31 | Outpatient (CLI) | payer MEDICARE, BC ==
[2018-03-31 15:19] LABS: Basophils # (auto) 0 uL; Eosinophils # (auto) 0 uL; Lymphocytes # (auto) 2.1 uL; Monocytes # (auto) 0.5 uL; Neutrophils # (auto) 1.8 uL; Nucleated Red Blood Cells % 0.2 %
[2018-03-31 15:20] LABS: Potassium 3.5 mmol/L (3.5-5.1)
[2018-03-31 15:23] LABS: Basophils % (auto) 0.5 % (0.0-2.0); Hematocrit 31.9 % (36.0-46.0); Hemoglobin 10.3 g/dL (12.2-16.2); Lymphocytes % (auto) 47.5 % (10.0-50.0); Mean Corpuscular Hemoglobin 23.9 pg (28.0-32.0); Mean Corpuscular Hgb Conc. 32.4 g/dL (32.0-36.0); Mean Corpuscular Volume 73.6 fL (80.0-100.0); Monocytes % (auto) 11.4 % (0.0-12.0); Neutrophils % (auto) 40.6 % (37.0-80.0); Platelet Count (auto) 236 10^3/uL (140-450); Red Blood Cells 4.33 10^6/uL (4.0-5.20); Red Cell Distribution Width 19.6 % (11.8-14.3); White Blood Cell 4.5 10^3/uL (4.4-10.8)
[2018-03-31 15:25] LABS: BUN/Creatinine Ratio 29.7; Calcium 8.7 mg/dL (8.5-10.1)
== END | disposition home or self-care (01) ==
LOC: CHF HDHVI 13:29
PROVIDERS: ATTEND Internal Medicine Cardiovascular Disease
DX: D64.9 Anemia, unspecified (principal); I10 Essential (primary) hypertension
CPT/HCPCS: 36415; 80048; 85025